=== PATIENT | male | born 1965 | race Caucasian/White ===

== ENCOUNTER 2016-10-03 09:00 | Outpatient (RCR) | payer OTHER ==
[~2016-10-03 09:00] MED LIST: AMOXICILLIN 8751 TAB PO; COUMADIN 1MG1 MG/TAB PO; CREON 120000 U-1 ECC PO; CREON 60000 U-11 ECC PO; DULCOLAX S10 MG/SUPP RC; FLEXERIL 1010 MG/TAB PO; FLOMAX 0.40.4 MG/CAP PO; FLONASE NASAL S16 GM NS; INSLANT SQ; INVANZ INJ1 G/VIAL IV; LANTUS100 U/ML SC; MELATONIN1 MG; MIRALAX PA17 GM/Dose PO; MYCAMINE100 MG IV; NOVLOG SQ; OXY IR5 MG PO; PERCOCET 325 MG1 TA2 PO; PERCOCET 325 MG1 TA3 PO; PHENERGAN 25 TA25 MG PO; PROAIR HFA0.09 MG/AC IH; ROXICODONE 55 MG/TAB PO; SENNALAX S PO; SUDAFED 12 HOU120 MG PO; TUSS PO; TYLENOL 325MG325 MG PO; ULTRAM 50MG TAB50 MG PO; ZOFRAN 4MG T4 MG/TAB PO; ZOFRAN ODT4 MG PO; ZYRTEC 10MG10 MG PO; ZYVOX 600MG600 MG PO
[2016-10-07] MEDS ORDERED: ZOFRAN ODT4 MG PO (19:09)
[2016-10-07] MEDS ORDERED: PERCOCET 325 MG1 TA3 PO (19:09)
== END 2016-10-09 | disposition still patient (30) ==
LOC: WSPT
DX: M25.512 Pain in left shoulder (principal); M25.511 Pain in right shoulder

== ENCOUNTER 2016-10-07 16:50 | Emergency (ER) | payer OTHER ==
[~2016-10-07] VITALS: Ht 180.3 cm; Wt 71.8 kg
[2016-10-07 16:55] VITALS: TEMP 98.6
[2016-10-07 17:31] LABS: BASO # 0.1 (0.0-0.2); BASO % 0.5 % (0.0-2.0); EOS # 0.1 (0.0-0.7); EOS % 0.6 % (0-4.0); GRAN # 12.6 (1.4-6.5); GRAN % 75.8 % (42.2-75.2); HEMATOCRIT 49.8 % (42.0-52.0); HEMOGLOBIN 16.8 g/dl (13.5-18.0); LYMPH # 2.2 (1.2-3.4); LYMPH % 13.4 % (20.0-51.0); MEAN CELL VOLUME 92 fl (80.0-100.0); MEAN CORPUSCULAR HEMOGLOBIN 31 pg (27.0-31.0); MEAN CORPUSCULAR HGB CONC 34 g/dl (33.0-37.0); MEAN PLATELET VOLUME 10.1 fl (7.4-10.4); MONO # 1.5 (0.1-0.6); MONO % 9.3 % (1.7-9.3); PLATELET COUNT 413 K/mm3 (130-400); RED BLOOD COUNT 5.42 M/mm3 (4.20-5.60); REDCELL DISTRIBUTION WIDTH-CV 13.2 % (11.5-14.5); WHITE BLOOD COUNT 16.6 K/mm3 (4.8-10.8)
[2016-10-07] MEDS ORDERED: PERCOCET 325 MG1 TA3 PO (19:09)
[2016-10-07] MEDS ORDERED: ZOFRAN ODT4 MG PO (19:09)
[2016-10-07 19:11] LABS: ALBUMIN 4.3 gm/dL (3.5-5.0); BILIRUBIN,TOTAL 1.4 mg/dL (0.0-1.0); C-REACTIVE PROTEIN 6.9 mg/dL (0.0-0.9); CALCIUM 10.2 mg/dL (8.4-10.2); CREATININE, serum 0.88 mg/dL (0.66-1.25); TOTAL PROTEIN 8.2 gm/dL (6.4-8.2)
[2016-10-07 19:55] VITALS: BP 138/88; PULSE 100
== END 2016-10-07 20:08 | disposition home or self-care (01) ==
LOC: COL.ER 16:50
PROVIDERS: Emergency Medicine
DX: K85.90 Acute pancreatitis without necrosis or infection, unspecified (principal); E11.9 Type 2 diabetes mellitus without complications; Z79.4 Long term (current) use of insulin
CPT/HCPCS: J1170; J2405; J7030

== ENCOUNTER → 2016-10-17 08:26 | Outpatient (RCR) | payer OTHER | LOC: WSPT 10-10 14:45 | DX: M25.511 Pain in right shoulder (principal); M25.512 Pain in left shoulder; M75.01 Adhesive capsulitis of right shoulder; M75.02 Adhesive capsulitis of left shoulder; M24.612 Ankylosis, left shoulder; M24.611 Ankylosis, right shoulder ==

== ENCOUNTER → 2016-11-24 | Outpatient (CLI) | payer OTHER | LOC: MHCPAIN 11:57 | DX: G89.29 Other chronic pain (principal); M47.817 Spondylosis without myelopathy or radiculopathy, lumbosacral region | CPT/HCPCS: G0463 ==

== ENCOUNTER → 2016-12-04 | Outpatient (CLI) | payer OTHER | LOC: MHCPAIN 13:56 | DX: M47.817 Spondylosis without myelopathy or radiculopathy, lumbosacral region (principal) ==

== ENCOUNTER → 2016-12-08 | Outpatient (CLI) | payer OTHER | LOC: MHCPAIN 13:30 | DX: G89.29 Other chronic pain (principal); M47.817 Spondylosis without myelopathy or radiculopathy, lumbosacral region | CPT/HCPCS: G0463 ==

== ENCOUNTER → 2016-12-11 | Outpatient (CLI) | payer OTHER | LOC: MHCPAIN 10:41 | DX: M47.817 Spondylosis without myelopathy or radiculopathy, lumbosacral region (principal) ==

== ENCOUNTER → 2016-12-23 | Outpatient (CLI) | payer OTHER | LOC: MHCPAIN 12:58 | DX: G89.29 Other chronic pain (principal); M47.817 Spondylosis without myelopathy or radiculopathy, lumbosacral region | CPT/HCPCS: G0463 ==

== ENCOUNTER → 2017-01-01 | Outpatient (CLI) | payer OTHER | LOC: MHCPAIN 12:37 | DX: M47.817 Spondylosis without myelopathy or radiculopathy, lumbosacral region (principal) | CPT/HCPCS: J2250; J3010 ==

== ENCOUNTER → 2017-01-15 | Outpatient (CLI) | payer OTHER | LOC: MHCPAIN 11:31 | DX: M47.817 Spondylosis without myelopathy or radiculopathy, lumbosacral region (principal) | CPT/HCPCS: J2250; J3010 ==

== ENCOUNTER → 2017-02-13 | Outpatient (CLI) | payer OTHER | LOC: MHCPAIN 10:07 | DX: G89.29 Other chronic pain (principal); M47.817 Spondylosis without myelopathy or radiculopathy, lumbosacral region | CPT/HCPCS: G0463 ==

== ENCOUNTER → 2017-03-13 | Outpatient (CLI) | payer OTHER | LOC: MHCPAIN 10:19 | DX: G89.29 Other chronic pain (principal); M47.817 Spondylosis without myelopathy or radiculopathy, lumbosacral region; M79.2 Neuralgia and neuritis, unspecified | CPT/HCPCS: G0463 ==

== ENCOUNTER 2017-04-13 09:00 | Outpatient (RCR) | payer OTHER | END 2017-04-21 16:10 | disposition home or self-care (01) | LOC: WSPT 09:00 | DX: M47.896 Other spondylosis, lumbar region (principal) ==

== ENCOUNTER → 2017-04-29 | Outpatient (CLI) | payer OTHER | LOC: MHCPAIN 12:47 | DX: G89.29 Other chronic pain (principal); M47.817 Spondylosis without myelopathy or radiculopathy, lumbosacral region; M79.1 Myalgia; M79.2 Neuralgia and neuritis, unspecified; Z87.891 Personal history of nicotine dependence | CPT/HCPCS: G0463 ==

== ENCOUNTER → 2017-05-05 | Outpatient (CLI) | payer OTHER | LOC: MHCPAIN 09:29 | DX: M79.1 Myalgia (principal) | CPT/HCPCS: J1040 ==

== ENCOUNTER → 2017-05-29 | Outpatient (CLI) | payer OTHER ==
[2017-05-29 14:36] LABS: BASO # 0.1 (0.0-0.2); BASO % 1.1 % (0.0-2.0); EOS # 0.2 (0.0-0.7); EOS % 2.9 % (0-4.0); GRAN # 4.6 (1.4-6.5); GRAN % 55.9 % (42.2-75.2); HEMATOCRIT 51.8 % (42.0-52.0); HEMOGLOBIN 16.9 g/dl (13.5-18.0); LYMPH # 2.4 (1.2-3.4); LYMPH % 29.2 % (20.0-51.0); MEAN CELL VOLUME 94 fl (80.0-100.0); MEAN CORPUSCULAR HEMOGLOBIN 31 pg (27.0-31.0); MEAN CORPUSCULAR HGB CONC 33 g/dl (33.0-37.0); MEAN PLATELET VOLUME 10.8 fl (7.4-10.4); MONO # 0.9 (0.1-0.6); MONO % 10.7 % (1.7-9.3); PLATELET COUNT 313 K/mm3 (130-400); RED BLOOD COUNT 5.51 M/mm3 (4.20-5.60); REDCELL DISTRIBUTION WIDTH-CV 13.2 % (11.5-14.5); WHITE BLOOD COUNT 8.3 K/mm3 (4.8-10.8)
[2017-05-29 14:42] LABS: ADJUSTED CALCIUM 10.1 mg/dL (8.4-10.2); BILIRUBIN,TOTAL 0.8 mg/dL (0.0-1.0); CALCIUM 10.1 mg/dL (8.4-10.2); CREATININE, serum 0.88 mg/dL (0.66-1.25); POTASSIUM 4.7 mmol/L (3.4-5.0); TOTAL PROTEIN 7.8 gm/dL (6.4-8.2)
== END ==
LOC: COL.LAB 12:18
PROVIDERS: Family Medicine
DX: E11.9 Type 2 diabetes mellitus without complications (principal)

== ENCOUNTER → 2017-05-29 | Outpatient (CLI) | payer OTHER | LOC: COL.LAB 12:15 | DX: Z01.89 Encounter for other specified special examinations (principal) ==

== ENCOUNTER → 2017-07-28 | Outpatient (CLI) | payer OTHER | LOC: MHCPAIN 12:35 | DX: G89.29 Other chronic pain (principal); M47.817 Spondylosis without myelopathy or radiculopathy, lumbosacral region; M79.1 Myalgia; M79.2 Neuralgia and neuritis, unspecified; Z87.891 Personal history of nicotine dependence | CPT/HCPCS: G0463 ==

== ENCOUNTER → 2017-07-29 | Outpatient (CLI) | payer OTHER | LOC: MHCPAIN 13:01 | DX: M79.1 Myalgia (principal) | CPT/HCPCS: J1040 ==

== ENCOUNTER → 2017-08-26 | Outpatient (CLI) | payer OTHER ==
[2017-08-26 16:31] LABS: HEMOGLOBIN 17.5 g/dl (13.5-18.0); MEAN CELL VOLUME 97 fl (80.0-100.0); MEAN CORPUSCULAR HEMOGLOBIN 31 pg (27.0-31.0); MEAN CORPUSCULAR HGB CONC 32 g/dl (33.0-37.0); PLATELET COUNT 331 K/mm3 (130-400); RED BLOOD COUNT 5.62 M/mm3 (4.20-5.60); WHITE BLOOD COUNT 10.6 K/mm3 (4.8-10.8)
[2017-08-26 16:33] LABS: HEMATOCRIT 54.4 % (42.0-52.0)
[2017-08-26 16:50] LABS: ADJUSTED CALCIUM 9.7 mg/dL (8.4-10.2); ALBUMIN 4.7 gm/dL (3.5-5.0); BILIRUBIN,TOTAL 0.9 mg/dL (0.0-1.0); CALCIUM 10.3 mg/dL (8.4-10.2); CREATININE, serum 0.87 mg/dL (0.66-1.25); POTASSIUM 4.3 mmol/L (3.4-5.0); TOTAL PROTEIN 8.2 gm/dL (6.4-8.2)
[2017-08-26 16:56] LABS: ERYTHROCYTE SEDIMENTATION RATE 1 mm/hr (0-15)
== END ==
LOC: COL.LAB 15:55
PROVIDERS: Internal Medicine Pulmonary Disease
DX: J30.9 Allergic rhinitis, unspecified (principal)

== ENCOUNTER → 2017-09-03 | Outpatient (CLI) | payer OTHER | LOC: COL.RAD 07:13 | DX: K85.90 Acute pancreatitis without necrosis or infection, unspecified (principal); E83.52 Hypercalcemia; R06.02 Shortness of breath | CPT/HCPCS: J7050; Q9967 ==

== ENCOUNTER → 2017-09-04 | Outpatient (CLI) | payer OTHER ==
[2017-09-04 13:40] LABS: BASO # 0.1 (0.0-0.2); BASO % 0.6 % (0.0-2.0); EOS # 0.2 (0.0-0.7); EOS % 1.7 % (0-4.0); GRAN # 7.5 (1.4-6.5); GRAN % 66.3 % (42.2-75.2); HEMATOCRIT 53.7 % (42.0-52.0); HEMOGLOBIN 17.3 g/dl (13.5-18.0); LYMPH # 2.4 (1.2-3.4); MEAN CELL VOLUME 97 fl (80.0-100.0); MEAN CORPUSCULAR HEMOGLOBIN 31 pg (27.0-31.0); MEAN CORPUSCULAR HGB CONC 32 g/dl (33.0-37.0); MEAN PLATELET VOLUME 10.3 fl (7.4-10.4); MONO # 1.1 (0.1-0.6); MONO % 10.1 % (1.7-9.3); PLATELET COUNT 335 K/mm3 (130-400); RED BLOOD COUNT 5.52 M/mm3 (4.20-5.60); WHITE BLOOD COUNT 11.3 K/mm3 (4.8-10.8)
== END ==
LOC: COL.LAB 13:05
PROVIDERS: Internal Medicine Pulmonary Disease
DX: E04.1 Nontoxic single thyroid nodule (principal)

== ENCOUNTER → 2017-09-24 | Outpatient (CLI) | payer BC ==
[~2017-09-24] VITALS: Ht 180.3 cm; Wt 77.3 kg
[~2017-09-24] MED LIST changes: +CLARINEX-D12 HO1 T12 PO; +CYMBALTA 30MG30 MG PO; +LEVEMIR FLEX100 U/ML SQ; +MELATONIN5 M1 SL; +NEURONTIN300 MG/CAP PO; +SENOKOT S 50 MG1 TAB PO; +THEO-24 30300 MG/CAP PO
[2017-09-24 08:55] VITALS: BP 129/86; PULSE 83
[2017-09-24 10:22] VITALS: BP 146/86; PULSE 81
== END ==
LOC: COL.RAD 08:19
DX: E04.2 Nontoxic multinodular goiter (principal); E21.3 Hyperparathyroidism, unspecified

== ENCOUNTER → 2017-09-28 | Outpatient (CLI) | payer BC | LOC: COL.RAD 11:09 | DX: E21.3 Hyperparathyroidism, unspecified (principal) | CPT/HCPCS: A9500 ==

== ENCOUNTER → 2017-09-30 | Outpatient (CLI) | payer BC | LOC: COL.LAB 15:20 | DX: E21.3 Hyperparathyroidism, unspecified (principal) ==

== ENCOUNTER → 2017-10-14 | Outpatient (CLI) | payer OTHER ==
[~2017-10-14] MED LIST changes: +PERCOCET 325 MG1 TAB PO
== END ==
LOC: BHSO 13:53
DX: F32.1 Major depressive disorder, single episode, moderate (principal)

== ENCOUNTER 2017-10-18 15:17 | Emergency (ER) | payer OTHER ==
[~2017-10-18] VITALS: Ht 180.3 cm; Wt 79.5 kg
[~2017-10-18 15:17] MED LIST changes: -PERCOCET 325 MG1 TAB PO
[2017-10-18 15:27] VITALS: TEMP 98.3
[2017-10-18 16:03] LABS: COLLECTION METHOD CLEAN CATCH
[2017-10-18 16:06] LABS: BASO # 0.1 (0.0-0.2); BASO % 0.8 % (0.0-2.0); EOS # 0.3 (0.0-0.7); EOS % 2.1 % (0-4.0); GRAN # 8.2 (1.4-6.5); GRAN % 60.5 % (42.2-75.2); HEMATOCRIT 49.6 % (42.0-52.0); LYMPH # 3.6 (1.2-3.4); LYMPH % 26.5 % (20.0-51.0); MEAN CELL VOLUME 96 fl (80.0-100.0); MEAN CORPUSCULAR HEMOGLOBIN 31 pg (27.0-31.0); MEAN CORPUSCULAR HGB CONC 32 g/dl (33.0-37.0); MEAN PLATELET VOLUME 10.2 fl (7.4-10.4); MONO # 1.3 (0.1-0.6); MONO % 9.8 % (1.7-9.3); PLATELET COUNT 342 K/mm3 (130-400); RED BLOOD COUNT 5.17 M/mm3 (4.20-5.60); REDCELL DISTRIBUTION WIDTH-CV 13.1 % (11.5-14.5)
[2017-10-18 16:10] LABS: MUCOUS Present /lpf; PH 5 (5-8); SQUAMOUS EPITHELIAL None Seen /hpf; URINE APPEARANCE Clear; URINE BACTERIA None Seen /hpf; URINE BILIRUBIN Negative (NEGATIVE); URINE BLOOD Negative (NEGATIVE); URINE COLOR Yellow; URINE GLUCOSE 1+ (NEGATIVE); URINE KETONE Trace (NEGATIVE); URINE LEUKOCYTE ESTERASE 1+ (NEGATIVE); URINE NITRATE Negative (NEGATIVE); URINE PROTEIN(semi-quant) Negative (NEGATIVE); URINE RBC 0-2 /hpf; URINE UROBILINOGEN Negative (NEGATIVE)
[2017-10-18 16:16] LABS: ALBUMIN 4.4 gm/dL (3.5-5.0); BILIRUBIN,TOTAL 0.7 mg/dL (0.0-1.0); CALCIUM 10.2 mg/dL (8.4-10.2); CREATININE, serum 0.92 mg/dL (0.66-1.25); POTASSIUM 4.1 mmol/L (3.4-5.0); TOTAL PROTEIN 7.7 gm/dL (6.4-8.2)
[2017-10-18] MEDS ORDERED: PERCOCET 325 MG1 TAB PO (17:32)
[2017-10-18] MEDS ORDERED: ZOFRAN 4MG T4 MG/TAB PO (17:32)
[2017-10-18 17:37] VITALS: BP 163/84; PULSE 84
== END 2017-10-18 17:40 | disposition home or self-care (01) ==
LOC: COL.ER 15:17
PROVIDERS: Emergency Medicine
DX: K85.90 Acute pancreatitis without necrosis or infection, unspecified (principal); K86.1 Other chronic pancreatitis; K86.81 Exocrine pancreatic insufficiency; E11.9 Type 2 diabetes mellitus without complications; Z90.49 Acquired absence of other specified parts of digestive tract; Z79.4 Long term (current) use of insulin
CPT/HCPCS: J1170; J2405; J7030

== ENCOUNTER → 2017-10-28 | Outpatient (CLI) | payer OTHER ==
[~2017-10-28] MED LIST changes: +PERCOCET 325 MG1 TAB PO
== END ==
LOC: MHCPAIN 14:17
DX: G89.29 Other chronic pain (principal); M47.817 Spondylosis without myelopathy or radiculopathy, lumbosacral region; M79.2 Neuralgia and neuritis, unspecified; K86.1 Other chronic pancreatitis
CPT/HCPCS: G0463

== ENCOUNTER → 2017-11-16 | Outpatient (CLI) | payer OTHER ==
[~2017-11-16] MED LIST changes: +CLARITIN D TAB1 TAB PO; +CYMBALTA 60MG60 MG PO; +MOVANTIK25 MG PO; +PREVACID24HROTC PO
== END ==
LOC: MHCPAIN 14:31
DX: G89.29 Other chronic pain (principal); M79.2 Neuralgia and neuritis, unspecified; M79.1 Myalgia; K86.1 Other chronic pancreatitis
CPT/HCPCS: G0463

== ENCOUNTER 2017-11-19 10:55 | Day surgery (SDC) | payer OTHER ==
[~2017-11-19] VITALS: Ht 180.3 cm; Wt 81.1 kg
[~2017-11-19 10:55] MED LIST changes: -CLARITIN D TAB1 TAB PO; -CYMBALTA 60MG60 MG PO; -MOVANTIK25 MG PO; -PREVACID24HROTC PO
[2017-11-19] MEDS ORDERED: PERCOCET 325 MG1 TA2 PO (11:58)
[2017-11-19] MEDS ORDERED: ZOFRAN 4MG T4 MG/TAB PO (12:02)
[2017-11-19] MEDS ORDERED: CYMBALTA 60MG60 MG PO (12:06)
[2017-11-19] MEDS ORDERED: CLARITIN D TAB1 TAB PO (12:08)
[2017-11-19] MEDS ORDERED: PREVACID24HROTC PO (12:15)
[2017-11-19] MEDS ORDERED: MOVANTIK25 MG PO (12:16)
[2017-11-19 12:22] VITALS: BP 116/93; PULSE 80; TEMP 98
[2017-11-19 17:13] VITALS: TEMP 98.4
[2017-11-19 20:05] VITALS: BP 139/74; PULSE 102
[2017-11-19 20:35] VITALS: BP 139/84; PULSE 111
[2017-11-19 21:35] VITALS: BP 128/86; PULSE 118
== END 2017-11-19 22:15 | disposition home or self-care (01) ==
LOC: SDCO 10:55 → SURG 18:53 → SDCO 22:15
DX: D35.1 Benign neoplasm of parathyroid gland (principal); E04.9 Nontoxic goiter, unspecified; E11.9 Type 2 diabetes mellitus without complications; K86.1 Other chronic pancreatitis; J30.9 Allergic rhinitis, unspecified; N40.1 Benign prostatic hyperplasia with lower urinary tract symptoms; R35.1 Nocturia; G89.29 Other chronic pain; M54.5 Low back pain; Z79.4 Long term (current) use of insulin; Z90.49 Acquired absence of other specified parts of digestive tract; Z88.8 Allergy status to other drugs, medicaments and biological substances; Z82.5 Family history of asthma and other chronic lower respiratory diseases
CPT/HCPCS: OP; J0330; J0690; J1100; J1815; J1885; J2270; J2405; J2704; J2765; J3010; J7030; J7040

== ENCOUNTER → 2017-11-23 | Outpatient (CLI) | payer OTHER ==
[~2017-11-23] MED LIST changes: +CLARITIN D TAB1 TAB PO; +CYMBALTA 60MG60 MG PO; +MOVANTIK25 MG PO; +PREVACID24HROTC PO
== END ==
LOC: COL.LAB 11:52
DX: E05.90 Thyrotoxicosis, unspecified without thyrotoxic crisis or storm (principal)

== ENCOUNTER → 2017-12-14 | Outpatient (CLI) | payer OTHER | LOC: MHCPAIN 11:54 | DX: G89.29 Other chronic pain (principal); M79.2 Neuralgia and neuritis, unspecified; M79.1 Myalgia; M46.96 Unspecified inflammatory spondylopathy, lumbar region | CPT/HCPCS: G0463 ==

== ENCOUNTER → 2017-12-17 | Outpatient (CLI) | payer OTHER ==
[2017-12-17 13:01] LABS: CALCIUM 8.7 mg/dL (8.4-10.2)
== END ==
LOC: COL.LAB 12:19
PROVIDERS: Student in an Organized Health Care Education/Training Program
DX: E21.0 Primary hyperparathyroidism (principal)

== ENCOUNTER → 2017-12-31 | Outpatient (CLI) | payer OTHER | LOC: MHCPAIN 12:50 | DX: M47.817 Spondylosis without myelopathy or radiculopathy, lumbosacral region (principal) ==

== ENCOUNTER → 2018-01-04 | Outpatient (CLI) | payer OTHER | LOC: MHCPAIN 13:23 | DX: G89.29 Other chronic pain (principal); M47.817 Spondylosis without myelopathy or radiculopathy, lumbosacral region; K86.1 Other chronic pancreatitis | CPT/HCPCS: G0463 ==

== ENCOUNTER → 2018-01-07 | Outpatient (CLI) | payer OTHER | LOC: MHCPAIN 11:59 | DX: M47.817 Spondylosis without myelopathy or radiculopathy, lumbosacral region (principal) | CPT/HCPCS: J2250; J3010 ==

== ENCOUNTER → 2018-01-14 | Outpatient (CLI) | payer OTHER | LOC: MHCPAIN 10:38 | DX: M47.817 Spondylosis without myelopathy or radiculopathy, lumbosacral region (principal) | CPT/HCPCS: J2250; J3010 ==

== ENCOUNTER 2018-01-30 20:24 | Emergency (ER) | payer OTHER ==
[~2018-01-30] VITALS: Ht 180.3 cm; Wt 84.1 kg
[2018-01-30 20:30] VITALS: TEMP 97
[2018-01-30 20:51] LABS: BASO # 0.1 (0.0-0.2); BASO % 0.8 % (0.0-2.0); EOS # 0.3 (0.0-0.7); EOS % 2.6 % (0-4.0); GRAN # 6.1 (1.4-6.5); HEMATOCRIT 47.5 % (42.0-52.0); HEMOGLOBIN 15.6 g/dl (13.5-18.0); LYMPH # 3.6 (1.2-3.4); LYMPH % 32.8 % (20.0-51.0); MEAN CELL VOLUME 95 fl (80.0-100.0); MEAN CORPUSCULAR HEMOGLOBIN 31 pg (27.0-31.0); MEAN CORPUSCULAR HGB CONC 33 g/dl (33.0-37.0); MEAN PLATELET VOLUME 9.9 fl (7.4-10.4); MONO # 0.9 (0.1-0.6); MONO % 8.5 % (1.7-9.3); PLATELET COUNT 368 K/mm3 (130-400); RED BLOOD COUNT 4.99 M/mm3 (4.20-5.60)
[2018-01-30 20:56] LABS: INR 1.1 (0.8-3.0); PROTHROMBIN TIME 12.5 SECONDS (9.7-12.8)
[2018-01-30 21:00] LABS: ALANINE AMINOTRANSFERASE 32 U/L (21-72); ALBUMIN 4.1 gm/dL (3.5-5.0); ALKALINE PHOSPHATASE 86 U/L (50-136); ANION GAP 12 mmol/L (7-16); AST,SGOT 28 U/L (15-37); BILIRUBIN,TOTAL 0.5 mg/dL (0.0-1.0); BLOOD UREA NITROGEN 19 mg/dL (9-20); CALCIUM 9.7 mg/dL (8.4-10.2); CARBON DIOXIDE 32 mmol/L (22-30); CHLORIDE 102 mmol/L (98-107); CREATININE, serum 1.13 mg/dL (0.66-1.25); GLUCOSE 131 mg/dL (74-106); LIPASE 1505 U/L (23-300); POTASSIUM 3.8 mmol/L (3.4-5.0); SODIUM 146 mmol/L (137-145); TOTAL PROTEIN 8.4 gm/dL (6.4-8.2)
[2018-01-30 21:12] LABS: TROPONIN-I < 0.012 ng/mL (0.000-0.034)
[2018-01-30 23:50] VITALS: BP 144/96; PULSE 75
== END 2018-01-30 23:51 | disposition home or self-care (01) ==
LOC: COL.ER 20:24
PROVIDERS: Emergency Medicine
DX: R07.89 Other chest pain (principal); Z87.19 Personal history of other diseases of the digestive system; Z87.09 Personal history of other diseases of the respiratory system; Z79.4 Long term (current) use of insulin
CPT/HCPCS: J1885; J7030

== ENCOUNTER → 2018-02-05 | Outpatient (CLI) | payer OTHER | LOC: MHCPAIN 11:10 | DX: G89.29 Other chronic pain (principal); M47.817 Spondylosis without myelopathy or radiculopathy, lumbosacral region; M79.2 Neuralgia and neuritis, unspecified | CPT/HCPCS: G0463 ==

== ENCOUNTER → 2018-02-12 | Outpatient (CLI) | payer OTHER ==
[2018-02-12 11:14] LABS: THYROID STIMULATING HORMONE 34.8 uIU/mL (0.465-4.680)
== END ==
LOC: COL.LAB 09:59
PROVIDERS: Student in an Organized Health Care Education/Training Program
DX: E03.9 Hypothyroidism, unspecified (principal)

== ENCOUNTER → 2018-03-29 | Outpatient (CLI) | payer OTHER ==
[2018-03-29 15:08] LABS: THYROID STIMULATING HORMONE 7.14 uIU/mL (0.465-4.680)
== END ==
LOC: COL.LAB 14:01
PROVIDERS: Student in an Organized Health Care Education/Training Program
DX: E03.9 Hypothyroidism, unspecified (principal)

== ENCOUNTER → 2018-04-16 | Outpatient (CLI) | payer OTHER | LOC: COL.PUL 04-12 10:00 | DX: R06.02 Shortness of breath (principal) ==

== ENCOUNTER → 2018-04-29 | Outpatient (CLI) | payer OTHER | LOC: COL.LAB 13:34 | DX: E03.9 Hypothyroidism, unspecified (principal) ==

== ENCOUNTER → 2018-04-30 | Outpatient (CLI) | payer OTHER | LOC: MHCPAIN 10:22 | DX: G89.29 Other chronic pain (principal); M47.817 Spondylosis without myelopathy or radiculopathy, lumbosacral region | CPT/HCPCS: G0463 ==

== ENCOUNTER → 2018-06-03 | Outpatient (CLI) | payer OTHER ==
[2018-06-03 12:38] LABS: CHOLESTEROL RISK RATIO 5.4
[2018-06-04 09:19] LABS: URINE MICROALBUMIN 3.6 mg/dL (0.0-1.7)
== END ==
LOC: COL.LAB 11:44
PROVIDERS: Family Medicine
DX: Z13.220 Encounter for screening for lipoid disorders (principal); E11.9 Type 2 diabetes mellitus without complications

== ENCOUNTER → 2018-07-21 | Outpatient (CLI) | payer OTHER | LOC: MHCPAIN 11:13 | DX: G89.29 Other chronic pain (principal); M47.817 Spondylosis without myelopathy or radiculopathy, lumbosacral region; M53.3 Sacrococcygeal disorders, not elsewhere classified | CPT/HCPCS: G0463 ==

== ENCOUNTER 2018-09-04 18:56 | Inpatient (IN) | payer OTHER ==
[~2018-09-04] VITALS: Ht 180.3 cm; Wt 86.5 kg
[2018-09-04 19:40] LABS: HEMATOCRIT 50.2 % (42.0-52.0); HEMOGLOBIN 16.4 g/dl (13.5-18.0); MEAN CELL VOLUME 93 fl (80.0-100.0); MEAN CORPUSCULAR HEMOGLOBIN 30 pg (27.0-31.0); MEAN CORPUSCULAR HGB CONC 33 g/dl (33.0-37.0); MEAN PLATELET VOLUME 9.7 fl (7.4-10.4); PLATELET COUNT 343 K/mm3 (130-400); RED BLOOD COUNT 5.39 M/mm3 (4.20-5.60); REDCELL DISTRIBUTION WIDTH-CV 13.6 % (11.5-14.5)
[2018-09-04 20:10] LABS: BILIRUBIN,TOTAL 0.8 mg/dL (0.0-1.0); CALCIUM 9.2 mg/dL (8.4-10.2); CREATININE, serum 0.9 mg/dL (0.66-1.25); POTASSIUM 3.8 mmol/L (3.4-5.0); TOTAL PROTEIN 7.6 gm/dL (6.4-8.2)
[2018-09-04] MEDS ORDERED: LIORESAL 1010 MG/TAB PO (20:15)
[2018-09-04] MEDS ORDERED: SINGULAIR 110 MG/TAB PO (20:15)
[2018-09-04] MEDS ORDERED: SYNTHROID 0.0.025 MG (20:16)
[2018-09-04] MEDS ORDERED: TRELEGY ELLIPT1 EACH IH (20:16)
[2018-09-04] MEDS ORDERED: SYNTHROID 0.10.15 MG PO (20:16)
[2018-09-04] MEDS ORDERED: COMBIRESP IH (20:17)
[2018-09-04 21:38] LABS: BAND 6 % (0-10); BASOPHIL 1 % (0-2); LYMPHOCYTE 5 % (20.0-51.0); NEUTROPHILS 80 % (42.0-75.2); PLATELET ESTIMATE NORMAL (NORMAL)
[2018-09-04 23:32] VITALS: BP 149/91; PULSE 97; TEMP 98.9
[2018-09-05] MEDS ORDERED: CREON 120000 U-1 ECC PO (00:11)
[2018-09-05 00:14] VITALS: BP 146/91; PULSE 97; TEMP 98
[2018-09-05 04:13] VITALS: BP 134/76; PULSE 86; TEMP 98
[2018-09-05 08:21] VITALS: BP 125/78; PULSE 72; TEMP 98.1
[2018-09-05 12:08] VITALS: BP 140/69; PULSE 81; TEMP 98.8
[2018-09-05 15:51] VITALS: BP 139/72; PULSE 86; TEMP 98.2
[2018-09-05 19:57] VITALS: BP 145/80; PULSE 79; TEMP 97.6
[2018-09-06] VITALS (7 sets, daily range): BP systolic 126–146; BP diastolic 60–87; PULSE 65–100; TEMP 97.7–100.1
[2018-09-06 09:21] LABS: HEMATOCRIT 45.2 % (42.0-52.0); MEAN CELL VOLUME 93 fl (80.0-100.0); MEAN CORPUSCULAR HEMOGLOBIN 31 pg (27.0-31.0); MEAN CORPUSCULAR HGB CONC 33 g/dl (33.0-37.0); MEAN PLATELET VOLUME 10.1 fl (7.4-10.4); PLATELET COUNT 341 K/mm3 (130-400); RED BLOOD COUNT 4.87 M/mm3 (4.20-5.60); REDCELL DISTRIBUTION WIDTH-CV 13.6 % (11.5-14.5)
[2018-09-06 09:36] LABS: CALCIUM 7.9 mg/dL (8.4-10.2); CREATININE, serum 0.76 mg/dL (0.66-1.25); POTASSIUM 3.7 mmol/L (3.4-5.0)
[2018-09-06 10:45] LABS: BAND 4 % (0-10); LYMPHOCYTE 10 % (20.0-51.0); NEUTROPHILS 74 % (42.0-75.2); PLATELET ESTIMATE NORMAL (NORMAL)
[2018-09-07 04:43] VITALS: BP 136/75; PULSE 74; TEMP 98.3
[2018-09-07 07:36] VITALS: BP 136/79; PULSE 77; TEMP 98.3
[2018-09-07 09:16] LABS: BASO % 0.3 % (0.0-2.0); EOS # 0.2 (0.0-0.7); EOS % 1.4 % (0-4.0); GRAN # 8.1 (1.4-6.5); GRAN % 69.2 % (42.2-75.2); HEMATOCRIT 45.8 % (42.0-52.0); HEMOGLOBIN 14.7 g/dl (13.5-18.0); LYMPH % 17.3 % (20.0-51.0); MEAN CELL VOLUME 95 fl (80.0-100.0); MEAN CORPUSCULAR HEMOGLOBIN 31 pg (27.0-31.0); MEAN CORPUSCULAR HGB CONC 32 g/dl (33.0-37.0); MEAN PLATELET VOLUME 9.7 fl (7.4-10.4); MONO # 1.3 (0.1-0.6); MONO % 11.5 % (1.7-9.3); PLATELET COUNT 339 K/mm3 (130-400); REDCELL DISTRIBUTION WIDTH-CV 13.6 % (11.5-14.5)
[2018-09-07 09:24] LABS: CALCIUM 8.7 mg/dL (8.4-10.2); CREATININE, serum 0.91 mg/dL (0.66-1.25); POTASSIUM 3.7 mmol/L (3.4-5.0)
[2018-09-07 11:25] VITALS: BP 138/89; PULSE 75; TEMP 98
[2018-09-07 16:25] VITALS: BP 144/38; PULSE 86; TEMP 97.6
[2018-09-07 20:55] VITALS: BP 151/82; PULSE 94; TEMP 97.8
[2018-09-07 23:46] VITALS: BP 136/81; PULSE 73; TEMP 98.1
[2018-09-08 05:29] VITALS: BP 125/72; PULSE 68; TEMP 97.9
[2018-09-08 06:11] LABS: BASO # 0.1 (0.0-0.2); BASO % 0.5 % (0.0-2.0); EOS # 0.2 (0.0-0.7); EOS % 2.4 % (0-4.0); GRAN # 6.1 (1.4-6.5); GRAN % 67.1 % (42.2-75.2); HEMATOCRIT 42.8 % (42.0-52.0); HEMOGLOBIN 13.8 g/dl (13.5-18.0); LYMPH # 1.6 (1.2-3.4); LYMPH % 17.6 % (20.0-51.0); MEAN CELL VOLUME 94 fl (80.0-100.0); MEAN CORPUSCULAR HEMOGLOBIN 30 pg (27.0-31.0); MEAN CORPUSCULAR HGB CONC 32 g/dl (33.0-37.0); MONO # 1.1 (0.1-0.6); MONO % 12.1 % (1.7-9.3); PLATELET COUNT 358 K/mm3 (130-400); RED BLOOD COUNT 4.57 M/mm3 (4.20-5.60); REDCELL DISTRIBUTION WIDTH-CV 13.3 % (11.5-14.5)
[2018-09-08 06:24] LABS: CALCIUM 8.1 mg/dL (8.4-10.2); CREATININE, serum 0.82 mg/dL (0.66-1.25); POTASSIUM 3.3 mmol/L (3.4-5.0)
[2018-09-08 08:07] VITALS: BP 141/77; PULSE 70; TEMP 97.1
[2018-09-08] MEDS ORDERED: PERCOCET 325 MG1 TA3 PO (10:33)
== END 2018-09-08 11:25 | disposition home or self-care (01) | DRG 439 ==
LOC: COL.ER 18:56 → MEDICAL 22:43
PROVIDERS: Emergency Medicine; Internal Medicine
DX: K86.3 Pseudocyst of pancreas (principal); F11.20 Opioid dependence, uncomplicated; J44.9 Chronic obstructive pulmonary disease, unspecified; Z87.891 Personal history of nicotine dependence; J45.909 Unspecified asthma, uncomplicated; E11.9 Type 2 diabetes mellitus without complications; Z79.4 Long term (current) use of insulin; K86.1 Other chronic pancreatitis; G89.29 Other chronic pain
CPT/HCPCS: 99232-AI; 99238; A4216; G0378; J1170; J1650; J1815; J2185; J2405; J7030; J7512; Q9967

== ENCOUNTER 2018-10-05 20:19 | Emergency (ER) | payer OTHER ==
[~2018-10-05] VITALS: Ht 180.3 cm; Wt 70.5 kg
[~2018-10-05 20:19] MED LIST changes: +COMBIRESP IH; +LIORESAL 1010 MG/TAB PO; +SINGULAIR 110 MG/TAB PO; +SYNTHROID 0.0.025 MG; +SYNTHROID 0.10.15 MG PO; +TRELEGY ELLIPT1 EACH IH
[2018-10-05 20:24] VITALS: TEMP 97.9
[2018-10-05 20:50] LABS: BASO # 0.1 (0.0-0.2); BASO % 0.7 % (0.0-2.0); EOS # 0.2 (0.0-0.7); EOS % 2.1 % (0-4.0); GRAN % 64.6 % (42.2-75.2); HEMATOCRIT 47.7 % (42.0-52.0); HEMOGLOBIN 15.4 g/dl (13.5-18.0); LYMPH # 2.4 (1.2-3.4); LYMPH % 22.1 % (20.0-51.0); MEAN CELL VOLUME 94 fl (80.0-100.0); MEAN CORPUSCULAR HEMOGLOBIN 30 pg (27.0-31.0); MEAN CORPUSCULAR HGB CONC 32 g/dl (33.0-37.0); MONO # 1.1 (0.1-0.6); MONO % 10.2 % (1.7-9.3); PLATELET COUNT 327 K/mm3 (130-400); RED BLOOD COUNT 5.08 M/mm3 (4.20-5.60)
[2018-10-05 21:04] LABS: BILIRUBIN,TOTAL 0.5 mg/dL (0.0-1.0); CALCIUM 9.3 mg/dL (8.4-10.2); CREATININE, serum 0.87 mg/dL (0.66-1.25); POTASSIUM 3.9 mmol/L (3.4-5.0); TOTAL PROTEIN 7.8 gm/dL (6.4-8.2)
[2018-10-05] MEDS ORDERED: PHENERGAN 25 TA25 MG PO (21:56)
[2018-10-05 22:07] VITALS: BP 120/88; PULSE 87
== END 2018-10-05 22:08 | disposition home or self-care (01) ==
LOC: COL.ER 20:19
PROVIDERS: Emergency Medicine
DX: R10.12 Left upper quadrant pain (principal); J44.9 Chronic obstructive pulmonary disease, unspecified; Z87.891 Personal history of nicotine dependence; Z79.51 Long term (current) use of inhaled steroids; Z79.4 Long term (current) use of insulin
CPT/HCPCS: J1630; J2270; J2550; J7030

== ENCOUNTER → 2018-10-11 | Outpatient (CLI) | payer OTHER | LOC: MHCPAIN 11:13 | DX: G89.29 Other chronic pain (principal); M47.817 Spondylosis without myelopathy or radiculopathy, lumbosacral region; M53.3 Sacrococcygeal disorders, not elsewhere classified | CPT/HCPCS: G0463 ==

== ENCOUNTER 2018-11-20 20:10 | Emergency (ER) | payer OTHER ==
[~2018-11-20] VITALS: Ht 180.3 cm; Wt 82.7 kg
[2018-11-20 20:26] VITALS: TEMP 97.5
[2018-11-20 22:15] LABS: BASO # 0.1 (0.0-0.2); BASO % 0.9 % (0.0-2.0); EOS # 0.2 (0.0-0.7); EOS % 1.6 % (0-4.0); GRAN # 6.6 (1.4-6.5); GRAN % 57.5 % (42.2-75.2); HEMATOCRIT 47.2 % (42.0-52.0); HEMOGLOBIN 15.6 g/dl (13.5-18.0); LYMPH # 3.5 (1.2-3.4); LYMPH % 30.4 % (20.0-51.0); MEAN CELL VOLUME 94 fl (80.0-100.0); MEAN CORPUSCULAR HEMOGLOBIN 31 pg (27.0-31.0); MEAN CORPUSCULAR HGB CONC 33 g/dl (33.0-37.0); MEAN PLATELET VOLUME 9.6 fl (7.4-10.4); MONO # 1.1 (0.1-0.6); MONO % 9.3 % (1.7-9.3); PLATELET COUNT 316 K/mm3 (130-400); RED BLOOD COUNT 5.04 M/mm3 (4.20-5.60); REDCELL DISTRIBUTION WIDTH-CV 13.6 % (11.5-14.5)
[2018-11-20 22:27] LABS: ALBUMIN 3.8 gm/dL (3.5-5.0); BILIRUBIN,TOTAL 0.2 mg/dL (0.0-1.0); CALCIUM 8.7 mg/dL (8.4-10.2); CREATININE, serum 0.93 mg/dL (0.66-1.25); POTASSIUM 3.6 mmol/L (3.4-5.0); TOTAL PROTEIN 7.2 gm/dL (6.4-8.2)
[2018-11-21 01:56] VITALS: BP 172/109; PULSE 80
== END 2018-11-21 03:24 | disposition short-term general hospital (02) ==
LOC: COL.ER 20:10
PROVIDERS: Emergency Medicine
DX: K85.90 Acute pancreatitis without necrosis or infection, unspecified (principal); K86.1 Other chronic pancreatitis; K86.3 Pseudocyst of pancreas; K86.81 Exocrine pancreatic insufficiency; E11.9 Type 2 diabetes mellitus without complications; Z79.4 Long term (current) use of insulin; Z87.19 Personal history of other diseases of the digestive system; Z90.49 Acquired absence of other specified parts of digestive tract
CPT/HCPCS: J1170; J2405; J2550; J7030; Q9967

== ENCOUNTER → 2018-12-06 | Outpatient (CLI) | payer OTHER | LOC: COL.LAB 13:37 | DX: E21.0 Primary hyperparathyroidism (principal) ==

== ENCOUNTER → 2018-12-06 | Outpatient (CLI) | payer OTHER | LOC: COL.RAD 13:34 | DX: R10.9 Unspecified abdominal pain (principal); Z90.49 Acquired absence of other specified parts of digestive tract; Z96.89 Presence of other specified functional implants ==

== ENCOUNTER → 2019-01-04 | Outpatient (CLI) | payer OTHER | LOC: MHCPAIN 12:30 | DX: G89.29 Other chronic pain (principal); M47.817 Spondylosis without myelopathy or radiculopathy, lumbosacral region; M53.3 Sacrococcygeal disorders, not elsewhere classified | CPT/HCPCS: G0463 ==

== ENCOUNTER → 2019-01-06 | Outpatient (CLI) | payer OTHER | LOC: MHCPAIN 14:02 | DX: M47.817 Spondylosis without myelopathy or radiculopathy, lumbosacral region (principal); M54.16 Radiculopathy, lumbar region ==

== ENCOUNTER → 2019-01-13 | Outpatient (CLI) | payer OTHER | LOC: MHCPAIN 13:47 | DX: M47.817 Spondylosis without myelopathy or radiculopathy, lumbosacral region (principal); G89.29 Other chronic pain; M53.3 Sacrococcygeal disorders, not elsewhere classified | CPT/HCPCS: G0463; J2250; J3010 ==

== ENCOUNTER 2019-01-18 21:44 | Emergency (ER) | payer OTHER ==
[~2019-01-18] VITALS: Ht 180.3 cm; Wt 82.7 kg
[2019-01-18 21:50] VITALS: BP 159/98; TEMP 97.9
[2019-01-18 23:39] LABS: BASO # 0.1 (0.0-0.2); EOS # 0.2 (0.0-0.7); EOS % 2.2 % (0-4.0); GRAN # 5.2 (1.4-6.5); HEMATOCRIT 51.3 % (42.0-52.0); HEMOGLOBIN 16.3 g/dl (13.5-18.0); LYMPH # 3.4 (1.2-3.4); LYMPH % 34.3 % (20.0-51.0); MEAN CELL VOLUME 96 fl (80.0-100.0); MEAN CORPUSCULAR HEMOGLOBIN 30 pg (27.0-31.0); MEAN CORPUSCULAR HGB CONC 32 g/dl (33.0-37.0); MEAN PLATELET VOLUME 9.8 fl (7.4-10.4); MONO # 0.9 (0.1-0.6); MONO % 9.3 % (1.7-9.3); PLATELET COUNT 358 K/mm3 (130-400); RED BLOOD COUNT 5.36 M/mm3 (4.20-5.60); REDCELL DISTRIBUTION WIDTH-CV 13.3 % (11.5-14.5)
[2019-01-18 23:51] LABS: ALBUMIN 4.1 gm/dL (3.5-5.0); BILIRUBIN,TOTAL 0.4 mg/dL (0.0-1.0); CALCIUM 9.4 mg/dL (8.4-10.2); CREATININE, serum 0.96 (0.66-1.25); TOTAL PROTEIN 7.8 gm/dL (6.4-8.2)
[2019-01-19 02:07] VITALS: PULSE 83
== END 2019-01-19 02:07 | disposition home or self-care (01) ==
LOC: COL.ER 21:44
PROVIDERS: Emergency Medicine
DX: R10.12 Left upper quadrant pain (principal); E11.9 Type 2 diabetes mellitus without complications; E03.9 Hypothyroidism, unspecified; Z79.4 Long term (current) use of insulin; Z87.19 Personal history of other diseases of the digestive system; Z90.49 Acquired absence of other specified parts of digestive tract; Z98.890 Other specified postprocedural states
CPT/HCPCS: J1170; J2405; J7030; Q9967

== ENCOUNTER → 2019-01-20 | Outpatient (CLI) | payer OTHER | LOC: MHCPAIN 13:51 | DX: M47.817 Spondylosis without myelopathy or radiculopathy, lumbosacral region (principal); M54.16 Radiculopathy, lumbar region | CPT/HCPCS: J2250; J3010 ==

== ENCOUNTER 2019-01-30 22:11 | Emergency (ER) | payer OTHER ==
[~2019-01-30] VITALS: Ht 180.3 cm; Wt 82.7 kg
[2019-01-30 22:35] VITALS: BP 147/87; TEMP 97.8
[2019-01-30 23:17] LABS: BASO # 0.1 (0.0-0.2); BASO % 0.6 % (0.0-2.0); EOS # 0.1 (0.0-0.7); EOS % 0.6 % (0-4.0); GRAN # 11.3 (1.4-6.5); GRAN % 72.6 % (42.2-75.2); HEMATOCRIT 45.3 % (42.0-52.0); HEMOGLOBIN 14.9 g/dl (13.5-18.0); LYMPH # 2.5 (1.2-3.4); LYMPH % 16.4 % (20.0-51.0); MEAN CELL VOLUME 95 fl (80.0-100.0); MEAN CORPUSCULAR HEMOGLOBIN 31 pg (27.0-31.0); MEAN CORPUSCULAR HGB CONC 33 g/dl (33.0-37.0); MEAN PLATELET VOLUME 10.8 fl (7.4-10.4); MONO # 1.5 (0.1-0.6); MONO % 9.5 % (1.7-9.3); PLATELET COUNT 310 K/mm3 (130-400); RED BLOOD COUNT 4.79 M/mm3 (4.20-5.60); REDCELL DISTRIBUTION WIDTH-CV 13.5 % (11.5-14.5)
[2019-01-30 23:49] LABS: ALBUMIN 3.6 gm/dL (3.5-5.0); BILIRUBIN,TOTAL 0.6 mg/dL (0.0-1.0); CALCIUM 8.6 mg/dL (8.4-10.2); CREATININE, serum 0.99 (0.66-1.25); POTASSIUM 3.7 mmol/L (3.4-5.0); TOTAL PROTEIN 6.9 gm/dL (6.4-8.2)
[2019-01-31 00:35] LABS: COLLECTION METHOD CLEAN CATCH
[2019-01-31 00:42] LABS: PH 7 (5-8); SQUAMOUS EPITHELIAL 0-2 /hpf; URINE APPEARANCE Clear; URINE BACTERIA None Seen /hpf; URINE BILIRUBIN Negative (NEGATIVE); URINE BLOOD Negative (NEGATIVE); URINE COLOR Straw; URINE GLUCOSE Negative (NEGATIVE); URINE KETONE Negative (NEGATIVE); URINE LEUKOCYTE ESTERASE Negative (NEGATIVE); URINE NITRATE Negative (NEGATIVE); URINE PROTEIN(semi-quant) Negative (NEGATIVE); URINE RBC 0-2 /hpf; URINE UROBILINOGEN Negative (NEGATIVE)
[2019-01-31 01:56] VITALS: PULSE 84
== END 2019-01-31 01:50 | disposition home or self-care (01) ==
LOC: COL.ER 22:11
PROVIDERS: Emergency Medicine
DX: K85.90 Acute pancreatitis without necrosis or infection, unspecified (principal); K86.3 Pseudocyst of pancreas; J44.9 Chronic obstructive pulmonary disease, unspecified; E11.9 Type 2 diabetes mellitus without complications; Z90.49 Acquired absence of other specified parts of digestive tract; Z90.89 Acquired absence of other organs; Z87.891 Personal history of nicotine dependence
CPT/HCPCS: J1170; J2550; J7030; Q9967

== ENCOUNTER → 2019-04-05 | Outpatient (CLI) | payer MEDICARE, OTHER | LOC: MHCPAIN 12:38 | DX: G89.29 Other chronic pain (principal); M47.817 Spondylosis without myelopathy or radiculopathy, lumbosacral region; M53.3 Sacrococcygeal disorders, not elsewhere classified | CPT/HCPCS: G0463 ==

== ENCOUNTER → 2019-06-29 | Outpatient (CLI) | payer MEDICARE, OTHER | LOC: COL.RAD 13:52 | DX: R22.1 Localized swelling, mass and lump, neck (principal); Z90.89 Acquired absence of other organs | CPT/HCPCS: Q9967 ==

== ENCOUNTER → 2019-07-05 | Outpatient (CLI) | payer MEDICARE, OTHER | LOC: MHCPAIN 12:36 | DX: G89.29 Other chronic pain (principal); M47.817 Spondylosis without myelopathy or radiculopathy, lumbosacral region; M53.3 Sacrococcygeal disorders, not elsewhere classified | CPT/HCPCS: G0463 ==

== ENCOUNTER 2019-07-09 01:19 | Emergency (ER) | payer MEDICARE, OTHER ==
[~2019-07-09] VITALS: Ht 180.3 cm; Wt 84.1 kg
[2019-07-09 01:31] VITALS: TEMP 98.1
[2019-07-09 02:38] LABS: BASO # 0.1 (0.0-0.2); BASO % 0.9 % (0.0-2.0); EOS # 0.3 (0.0-0.7); EOS % 2.1 % (0-4.0); GRAN # 7.7 (1.4-6.5); GRAN % 60.6 % (42.2-75.2); HEMOGLOBIN 17.2 g/dl (13.5-18.0); LYMPH # 3.4 (1.2-3.4); LYMPH % 27.2 % (20.0-51.0); MEAN CELL VOLUME 94 fl (80.0-100.0); MEAN CORPUSCULAR HEMOGLOBIN 31 pg (27.0-31.0); MEAN CORPUSCULAR HGB CONC 33 g/dl (33.0-37.0); MONO # 1.1 (0.1-0.6); MONO % 8.9 % (1.7-9.3); PLATELET COUNT 336 K/mm3 (130-400)
[2019-07-09 02:41] LABS: HEMATOCRIT 52.7 % (42.0-52.0)
[2019-07-09 02:46] LABS: COLLECTION METHOD CLEAN CATCH
[2019-07-09 02:48] LABS: ALBUMIN 4.3 gm/dL (3.5-5.0); BILIRUBIN,TOTAL 0.4 mg/dL (0.0-1.0); CALCIUM 8.9 mg/dL (8.4-10.2); CREATININE, serum 0.97 (0.66-1.25); TOTAL PROTEIN 8.1 gm/dL (6.4-8.2)
[2019-07-09 02:57] LABS: MUCOUS Present /lpf; PH 6 (5-8); SQUAMOUS EPITHELIAL None Seen /hpf; URINE APPEARANCE Clear; URINE BACTERIA None Seen /hpf; URINE BILIRUBIN Negative (NEGATIVE); URINE BLOOD Negative (NEGATIVE); URINE COLOR Yellow; URINE GLUCOSE Negative (NEGATIVE); URINE KETONE Negative (NEGATIVE); URINE LEUKOCYTE ESTERASE Negative (NEGATIVE); URINE NITRATE Negative (NEGATIVE); URINE PROTEIN(semi-quant) 1+ (NEGATIVE); URINE RBC 0-2 /hpf; URINE UROBILINOGEN Negative (NEGATIVE)
[2019-07-09 04:03] VITALS: BP 154/90; PULSE 74
== END 2019-07-09 04:03 | disposition home or self-care (01) ==
LOC: COL.ER 01:19
PROVIDERS: Emergency Medicine
DX: K86.1 Other chronic pancreatitis (principal); Z79.51 Long term (current) use of inhaled steroids; Z79.4 Long term (current) use of insulin
CPT/HCPCS: J1170; J2405; J7050

== ENCOUNTER → 2019-08-04 | Outpatient (CLI) | payer MEDICARE, OTHER ==
[2019-08-04 12:51] LABS: BASO # 0.1 (0.0-0.2); EOS # 0.2 (0.0-0.7); EOS % 1.7 % (0-4.0); GRAN # 6.2 (1.4-6.5); GRAN % 65.5 % (42.2-75.2); HEMATOCRIT 51.2 % (42.0-52.0); HEMOGLOBIN 16.6 g/dl (13.5-18.0); LYMPH % 20.6 % (20.0-51.0); MEAN CELL VOLUME 94 fl (80.0-100.0); MEAN CORPUSCULAR HEMOGLOBIN 31 pg (27.0-31.0); MEAN CORPUSCULAR HGB CONC 32 g/dl (33.0-37.0); MEAN PLATELET VOLUME 10.6 fl (7.4-10.4); MONO % 10.8 % (1.7-9.3); PLATELET COUNT 344 K/mm3 (130-400); RED BLOOD COUNT 5.44 M/mm3 (4.20-5.60); REDCELL DISTRIBUTION WIDTH-CV 13.2 % (11.5-14.5)
== END ==
LOC: COL.LAB 12:07
PROVIDERS: Internal Medicine Pulmonary Disease
DX: R06.02 Shortness of breath (principal)

== ENCOUNTER 2019-09-23 20:06 | Emergency (ER) | payer MEDICARE, OTHER ==
[~2019-09-23] VITALS: Ht 180.3 cm; Wt 86.4 kg
[2019-09-23 20:11] VITALS: TEMP 99
[2019-09-23 20:40] LABS: COLLECTION METHOD CLEAN CATCH
[2019-09-23 20:51] LABS: MUCOUS Present /lpf; PH 6 (5-8); SQUAMOUS EPITHELIAL None Seen /hpf; URINE APPEARANCE Clear; URINE BACTERIA None Seen /hpf; URINE BILIRUBIN Negative (NEGATIVE); URINE BLOOD Negative (NEGATIVE); URINE COLOR Yellow; URINE GLUCOSE Negative (NEGATIVE); URINE KETONE Negative (NEGATIVE); URINE LEUKOCYTE ESTERASE Negative (NEGATIVE); URINE NITRATE Negative (NEGATIVE); URINE PROTEIN(semi-quant) Negative (NEGATIVE); URINE RBC 0-2 /hpf; URINE UROBILINOGEN Negative (NEGATIVE)
[2019-09-23 20:52] LABS: BASO # 0.1 (0.0-0.2); EOS # 0.2 (0.0-0.7); EOS % 2.1 % (0-4.0); GRAN # 6.5 (1.4-6.5); HEMOGLOBIN 16.3 g/dl (13.5-18.0); LYMPH # 3.3 (1.2-3.4); MEAN CELL VOLUME 95 fl (80.0-100.0); MEAN CORPUSCULAR HEMOGLOBIN 31 pg (27.0-31.0); MEAN CORPUSCULAR HGB CONC 33 g/dl (33.0-37.0); MEAN PLATELET VOLUME 10.2 fl (7.4-10.4); MONO # 1.2 (0.1-0.6); MONO % 10.5 % (1.7-9.3); PLATELET COUNT 342 K/mm3 (130-400); RED BLOOD COUNT 5.29 M/mm3 (4.20-5.60); REDCELL DISTRIBUTION WIDTH-CV 13.2 % (11.5-14.5)
[2019-09-23 21:02] LABS: ALBUMIN 4.2 gm/dL (3.5-5.0); BILIRUBIN,TOTAL 0.4 mg/dL (0.0-1.0); C-REACTIVE PROTEIN 0.8 mg/dL (0.0-0.9); CALCIUM 8.7 mg/dL (8.4-10.2); CREATININE, serum 0.88 (0.66-1.25); POTASSIUM 3.7 mmol/L (3.4-5.0); TOTAL PROTEIN 7.8 gm/dL (6.4-8.2)
[2019-09-23 22:35] VITALS: BP 148/99; PULSE 80
== END 2019-09-23 22:43 | disposition home or self-care (01) ==
LOC: COL.ER 20:06
PROVIDERS: Family Medicine
DX: K86.1 Other chronic pancreatitis (principal); E11.9 Type 2 diabetes mellitus without complications; K59.00 Constipation, unspecified; J45.909 Unspecified asthma, uncomplicated; Z79.4 Long term (current) use of insulin; Z79.51 Long term (current) use of inhaled steroids
CPT/HCPCS: J1170; J2270; J2405; J7030; Q9967

== ENCOUNTER → 2019-09-27 | Outpatient (CLI) | payer MEDICARE, OTHER | LOC: MHCPAIN 12:51 | DX: M47.817 Spondylosis without myelopathy or radiculopathy, lumbosacral region (principal); M53.3 Sacrococcygeal disorders, not elsewhere classified | CPT/HCPCS: G0463 ==

== ENCOUNTER → 2019-10-13 | Outpatient (CLI) | payer MEDICARE, OTHER | LOC: MHCPAIN 09:35 | DX: M54.5 Low back pain (principal) | CPT/HCPCS: J2250; J3010 ==

== ENCOUNTER → 2019-10-20 | Outpatient (CLI) | payer MEDICARE, OTHER | LOC: MHCPAIN 10:47 | DX: M54.5 Low back pain (principal) | CPT/HCPCS: J1100; J2250; J3010 ==

== ENCOUNTER 2019-12-22 14:53 | Emergency (ER) | payer MEDICARE, OTHER ==
[~2019-12-22] VITALS: Ht 180.3 cm; Wt 87.3 kg
[2019-12-22 16:11] LABS: BASO # 0.1 (0.0-0.2); BASO % 0.6 % (0.0-2.0); EOS # 0.2 (0.0-0.7); EOS % 1.9 % (0-4.0); GRAN # 8.9 (1.4-6.5); GRAN % 70.4 % (42.2-75.2); HEMOGLOBIN 17.4 g/dl (13.5-18.0); LYMPH # 2.3 (1.2-3.4); LYMPH % 18.1 % (20.0-51.0); MEAN CELL VOLUME 95 fl (80.0-100.0); MEAN CORPUSCULAR HEMOGLOBIN 31 pg (27.0-31.0); MEAN CORPUSCULAR HGB CONC 33 g/dl (33.0-37.0); MEAN PLATELET VOLUME 9.9 fl (7.4-10.4); MONO # 1.1 (0.1-0.6); MONO % 8.7 % (1.7-9.3); PLATELET COUNT 363 K/mm3 (130-400); RED BLOOD COUNT 5.62 M/mm3 (4.20-5.60); REDCELL DISTRIBUTION WIDTH-CV 13.2 % (11.5-14.5)
[2019-12-22 16:15] LABS: HEMATOCRIT 53.5 % (42.0-52.0)
[2019-12-22 16:25] LABS: ALBUMIN 4.5 gm/dL (3.5-5.0); BILIRUBIN,TOTAL 0.6 mg/dL (0.0-1.0); CALCIUM 9.8 mg/dL (8.4-10.2); CREATININE, serum 0.86 (0.66-1.25); POTASSIUM 4.4 mmol/L (3.4-5.0); TOTAL PROTEIN 8.4 gm/dL (6.4-8.2)
[2019-12-22 17:41] VITALS: BP 140/70; PULSE 74; TEMP 97.1
[2019-12-23] MEDS ORDERED: PERCOCET 325 MG1 TA3 PO (00:09)
== END 2019-12-22 17:50 | disposition home or self-care (01) ==
LOC: COL.ER 14:53
PROVIDERS: Emergency Medicine
DX: K86.1 Other chronic pancreatitis (principal); I10 Essential (primary) hypertension; E11.9 Type 2 diabetes mellitus without complications; Z90.89 Acquired absence of other organs; Z79.51 Long term (current) use of inhaled steroids; Z79.4 Long term (current) use of insulin
CPT/HCPCS: J1170; J2405; J2550; J7030

== ENCOUNTER 2019-12-22 21:44 | Inpatient (IN) | payer MEDICARE, OTHER ==
[~2019-12-22] VITALS: Ht 177.8 cm; Wt 84.0 kg
--- NOTE | 2019-12-22 23:40 | NUR ---
Arrives per cart, is alert and oriented x4. Has SL to right AC without redness or swelling.
[2019-12-22 23:59] LABS: COLLECTION METHOD CLEAN CATCH
[2019-12-23] VITALS (14 sets, daily range): BP systolic 141–177; BP diastolic 76–98; PULSE 63–91; TEMP 97.5–98.8
[2019-12-23 00:06] LABS: MUCOUS Present /lpf; PH 7 (5-8); SQUAMOUS EPITHELIAL None Seen /hpf; URINE APPEARANCE Clear; URINE BACTERIA None Seen /hpf; URINE BILIRUBIN Negative (NEGATIVE); URINE BLOOD Negative (NEGATIVE); URINE COLOR Yellow; URINE GLUCOSE Negative (NEGATIVE); URINE KETONE Negative (NEGATIVE); URINE LEUKOCYTE ESTERASE Negative (NEGATIVE); URINE NITRATE Negative (NEGATIVE); URINE PROTEIN(semi-quant) Negative (NEGATIVE); URINE UROBILINOGEN Negative (NEGATIVE)
[2019-12-23] MEDS ORDERED: PERCOCET 325 MG1 TA3 PO (00:09)
--- NOTE | 2019-12-23 00:15 | NUR ---
While doing patients admission questions, pt asks for doctor to be called for more pain meds, he doesn't think he can wait until [address] Quintana notified, new orders received for COIL FINISHER Dilaudid, Synthroid, accuchecks and Insulin PRN. Also okayed ice chips sparingly.
--- NOTE | 2019-12-23 00:55 | NUR ---
Restarted IV to left forearm with #20 insyte on first attempt. Pt requested new site as he didn't like the IV in his right AC. Dc'd INT to right AC, angiocath intact.
--- NOTE | 2019-12-23 01:03 | NUR ---
Initiated RN HEDIS Dilaudid at this time, infusing to left forearm site without problem, has NS at 125cc/hr infusing also. BS 96mg/dl.
--- NOTE | 2019-12-23 02:30 | NUR ---
Pt uses urinal, voids 300cc of yellow urine without problem.
--- NOTE | 2019-12-23 06:00 | NUR ---
PT TAKES OWN SYNTHROID THIS AM HE CAN'T TAKE GENERIC. NGT CLAMPED FOR 30 MINUTES.
--- NOTE | 2019-12-23 06:14 | NUR ---
NEW SYRINGE OF SWIMMING POOL MAINTENANCE DILAUDID HUNG. RATES PAIN 5/10. NG OUTPUT 950CC OF GREEN DRAINAGE WITH MORE IN CANNISTER AT THIS TIME.
[2019-12-23 08:31] LABS: BASO % 0.4 % (0.0-2.0); EOS # 0.3 (0.0-0.7); EOS % 2.6 % (0-4.0); GRAN # 7.5 (1.4-6.5); GRAN % 65.9 % (42.2-75.2); HEMATOCRIT 50.7 % (42.0-52.0); HEMOGLOBIN 16.4 g/dl (13.5-18.0); LYMPH # 2.1 (1.2-3.4); LYMPH % 18.2 % (20.0-51.0); MEAN CELL VOLUME 96 fl (80.0-100.0); MEAN CORPUSCULAR HEMOGLOBIN 31 pg (27.0-31.0); MEAN CORPUSCULAR HGB CONC 32 g/dl (33.0-37.0); MONO # 1.4 (0.1-0.6); MONO % 12.6 % (1.7-9.3); PLATELET COUNT 341 K/mm3 (130-400); RED BLOOD COUNT 5.31 M/mm3 (4.20-5.60); REDCELL DISTRIBUTION WIDTH-CV 13.2 % (11.5-14.5)
[2019-12-23 08:40] LABS: BILIRUBIN,TOTAL 0.9 mg/dL (0.0-1.0); CALCIUM 8.5 mg/dL (8.4-10.2); CREATININE, serum 0.82 (0.66-1.25); POTASSIUM 3.9 mmol/L (3.4-5.0); TOTAL PROTEIN 7.5 gm/dL (6.4-8.2)
--- NOTE | 2019-12-23 09:07 | NUR ---
PT SITTING UP IN BED. MANY COMPLAINTS. PT STATING THAT THIS HOSPITAL AND STAFF ARE THE REASON HE IS HAVING ISSUES R/T PAST SURGERY. (CHOLEYCYSTECTOMY). ON PHONE SEVERAL TIMES WITH [facility] SURGEON PER PT REPORT. FLUIDS CHANGED PER ORDERS.
--- NOTE | 2019-12-23 12:42 | NUR ---
LANA met with the patient to complete initial intake. The patient lives in [place] with his . The patient denies DME use and is independent with ADLs. The patient does not have a PCP and refused a list. He will find one on his own and the patient receives medications from [facility]. The patient does not have advanced directives in the EMR and was not interested in a DPOA-HC form. The patient plans to return home at discharge. There are no additional needs at this time.
--- NOTE | 2019-12-23 15:10 | NUR ---
NG TUBE CLAMPED PER ORDERS PT TOLERATED WELL, TAKING PO MEDS AND CLEAR LIQUIDS.
--- NOTE | 2019-12-23 19:03 | NUR ---
REPORT TO CHRIS MARTINEZ.
--- NOTE | 2019-12-23 21:00 | NUR ---
PT NOW ARGUING ABOUT LEVIMEIR INSULIN. PT EATING YOGURT, PUDDING AND APPLESAUCE. REFUSED INSULIN.
--- NOTE | 2019-12-23 21:00 | NUR ---
PT AGITATED AND VERY ARGUMENTATIVE. PT CONCERNED ABOUT DIET ORDERS, BP MEDICATION, LEVOTHYROXINE. HOME BP MED NOT ON RECONILED MEDS & NOT ON MAR. REQUESTED PT TO CALL AT HOME TO CLARIFY WHICH MED IT IS. CONTINUES TO ARGUE. THIS NURSE LEFT ROOM. ATTEMPTED NOTIFIED CAN RUNNER OF PT'S UNCOOPERATIVENESS. LINE BUSY. NOTIFIED CHARGE NURSE. PT CALLED THIS INURSE INTO ROOM. SENT PICTURE OF AMLODIPINE BOTTLE FROM HOME. NOTIFIED DR SALAZAR OF ALL OF PT'S COMPLAINTS. SEE NEW ORDERS.
--- NOTE | 2019-12-23 22:45 | NUR ---
PATIENT REFUSED TREATMENT
[2019-12-24 03:51] VITALS: BP 177/99; PULSE 84; TEMP 98.7
[2019-12-24 07:11] LABS: BASO # 0.1 (0.0-0.2); BASO % 0.5 % (0.0-2.0); EOS # 0.2 (0.0-0.7); EOS % 1.7 % (0-4.0); GRAN # 10.2 (1.4-6.5); HEMATOCRIT 51.3 % (42.0-52.0); HEMOGLOBIN 16.5 g/dl (13.5-18.0); LYMPH # 1.6 (1.2-3.4); MEAN CELL VOLUME 96 fl (80.0-100.0); MEAN CORPUSCULAR HEMOGLOBIN 31 pg (27.0-31.0); MEAN CORPUSCULAR HGB CONC 32 g/dl (33.0-37.0); MEAN PLATELET VOLUME 10.2 fl (7.4-10.4); MONO # 1.4 (0.1-0.6); MONO % 10.4 % (1.7-9.3); PLATELET COUNT 314 K/mm3 (130-400); RED BLOOD COUNT 5.37 M/mm3 (4.20-5.60); REDCELL DISTRIBUTION WIDTH-CV 12.9 % (11.5-14.5)
[2019-12-24 07:17] VITALS: BP 168/99; PULSE 98; TEMP 98.3
[2019-12-24 07:20] LABS: ALBUMIN 4.2 gm/dL (3.5-5.0); BILIRUBIN,TOTAL 0.9 mg/dL (0.0-1.0); CALCIUM 8.8 mg/dL (8.4-10.2); CREATININE, serum 0.74 (0.66-1.25); POTASSIUM 3.8 mmol/L (3.4-5.0); TOTAL PROTEIN 7.9 gm/dL (6.4-8.2)
--- NOTE | 2019-12-24 10:00 | NUR ---
Patient is hoping to discharge home by lunch time. Discontinued NG tube at this time. Patient tolerated well. Patient had a low fiber breakfast and tolerated well. No complaints of nausea. He has been passing flatus without problems, denies cramping. No other changes at this time. Call light within reach.
[2019-12-24 11:19] VITALS: BP 168/94; PULSE 92; TEMP 98.4
--- NOTE | 2019-12-24 12:00 | NUR ---
Patient is discharging home. Discharge isntructions discussed with patient. Explained to follow up if needed. No questions verbalized. INT discontinued. Copies of discharge instructions sent with patient. Patient walked out via wheel chair by Mellisa CRUZ.
== END 2019-12-24 12:10 | disposition home or self-care (01) | DRG 389 ==
LOC: COL.ER 21:44 → SURG 22:52
PROVIDERS: Nurse Practitioner Family; ADMIT Surgery
DX: K56.609 Unspecified intestinal obstruction, unspecified as to partial versus complete obstruction (principal); K86.1 Other chronic pancreatitis; F11.20 Opioid dependence, uncomplicated; I10 Essential (primary) hypertension; J44.9 Chronic obstructive pulmonary disease, unspecified; M19.90 Unspecified osteoarthritis, unspecified site; E10.40 Type 1 diabetes mellitus with diabetic neuropathy, unspecified; E04.2 Nontoxic multinodular goiter; G62.9 Polyneuropathy, unspecified; E21.3 Hyperparathyroidism, unspecified; Z90.49 Acquired absence of other specified parts of digestive tract; Z87.891 Personal history of nicotine dependence
CPT/HCPCS: OP; A9284; G0378; J1170; J1815; J2405; J2550; J3480; J7030; Q9967

== ENCOUNTER → 2020-01-27 | Outpatient (CLI) | payer OTHER, MEDICARE | LOC: COL.LAB 15:28 | DX: E03.9 Hypothyroidism, unspecified (principal) ==

== ENCOUNTER → 2020-02-08 | Outpatient (CLI) | payer OTHER, MEDICARE | LOC: MHCPAIN 12:51 | DX: M47.817 Spondylosis without myelopathy or radiculopathy, lumbosacral region (principal); M54.5 Low back pain; M53.3 Sacrococcygeal disorders, not elsewhere classified; G89.29 Other chronic pain | CPT/HCPCS: G0463 ==

== ENCOUNTER → 2020-02-10 | Outpatient (CLI) | payer OTHER, MEDICARE | LOC: COL.RAD 09:45 | DX: N50.812 Left testicular pain (principal); I86.1 Scrotal varices ==

== ENCOUNTER → 2020-02-23 | Outpatient (CLI) | payer OTHER, MEDICARE | LOC: MHCPAIN 12:01 | DX: M47.817 Spondylosis without myelopathy or radiculopathy, lumbosacral region (principal); M53.3 Sacrococcygeal disorders, not elsewhere classified; M54.5 Low back pain; G89.29 Other chronic pain | CPT/HCPCS: G0260; J1040; Q9967 ==

== ENCOUNTER → 2020-02-24 | Outpatient (CLI) | payer OTHER, MEDICARE | LOC: COL.RAD 11:39 | DX: M48.061 Spinal stenosis, lumbar region without neurogenic claudication (principal); M51.36 Other intervertebral disc degeneration, lumbar region; M51.37 Other intervertebral disc degeneration, lumbosacral region; M47.816 Spondylosis without myelopathy or radiculopathy, lumbar region; M47.817 Spondylosis without myelopathy or radiculopathy, lumbosacral region; M25.411 Effusion, right shoulder | CPT/HCPCS: A9585; Q9967 ==

== ENCOUNTER 2020-05-06 07:09 | Inpatient (IN) | payer OTHER, MEDICARE ==
[2020-05-06] VITALS (9 sets, daily range): BP systolic 139–165; BP diastolic 62–96; PULSE 74–89; TEMP 97.4–98.4
[~2020-05-06] VITALS: Ht 180.3 cm; Wt 89.0 kg
[2020-05-06 07:26] LABS: BASO # 0.1 (0.0-0.2); BASO % 0.4 % (0.0-2.0); EOS % 0.1 % (0-4.0); GRAN # 14.5 (1.4-6.5); GRAN % 86.6 % (42.2-75.2); HEMOGLOBIN 17.2 g/dl (13.5-18.0); LYMPH # 1.2 (1.2-3.4); LYMPH % 7.4 % (20.0-51.0); MEAN CELL VOLUME 94 fl (80.0-100.0); MEAN CORPUSCULAR HEMOGLOBIN 31 pg (27.0-31.0); MEAN CORPUSCULAR HGB CONC 33 g/dl (33.0-37.0); MEAN PLATELET VOLUME 9.8 fl (7.4-10.4); MONO # 0.9 (0.1-0.6); MONO % 5.1 % (1.7-9.3); PLATELET COUNT 359 K/mm3 (130-400); RED BLOOD COUNT 5.58 M/mm3 (4.20-5.60); REDCELL DISTRIBUTION WIDTH-CV 13.4 % (11.5-14.5)
[2020-05-06 07:27] LABS: HEMATOCRIT 52.2 % (42.0-52.0)
[2020-05-06 07:30] LABS: PROTHROMBIN TIME 11.2 SECONDS (9.7-12.8)
[2020-05-06 07:33] LABS: PARTIAL THROMBOPLASTIN TIME 40.3 SECONDS (26.0-37.0)
[2020-05-06 07:37] LABS: ALBUMIN 4.8 gm/dL (3.5-5.0); BILIRUBIN,TOTAL 0.7 mg/dL (0.0-1.0); C-REACTIVE PROTEIN 1.3 mg/dL (0.0-0.9); CALCIUM 9.7 mg/dL (8.4-10.2); CREATININE, serum 0.93 (0.66-1.25); MAGNESIUM 2.3 mg/dL (1.6-2.3); TOTAL PROTEIN 8.9 gm/dL (6.4-8.2)
[2020-05-06 08:27] LABS: COLLECTION METHOD CLEAN CATCH
[2020-05-06 08:48] LABS: MUCOUS Present /lpf; PH 8 (5-8); SQUAMOUS EPITHELIAL None Seen /hpf; URINE APPEARANCE Cloudy; URINE BACTERIA None Seen /hpf; URINE BILIRUBIN Negative (NEGATIVE); URINE BLOOD Negative (NEGATIVE); URINE COLOR Yellow; URINE GLUCOSE 3+ (NEGATIVE); URINE KETONE Trace (NEGATIVE); URINE LEUKOCYTE ESTERASE Negative (NEGATIVE); URINE NITRATE Negative (NEGATIVE); URINE PROTEIN(semi-quant) Negative (NEGATIVE); URINE RBC 0-2 /hpf; URINE UROBILINOGEN Negative (NEGATIVE)
[2020-05-06 16:41] LABS: BASO % 0.2 % (0.0-2.0); GRAN # 14.7 (1.4-6.5); GRAN % 88.5 % (42.2-75.2); HEMATOCRIT 51.1 % (42.0-52.0); HEMOGLOBIN 16.5 g/dl (13.5-18.0); LYMPH # 0.6 (1.2-3.4); LYMPH % 3.4 % (20.0-51.0); MEAN CELL VOLUME 95 fl (80.0-100.0); MEAN CORPUSCULAR HEMOGLOBIN 31 pg (27.0-31.0); MEAN CORPUSCULAR HGB CONC 32 g/dl (33.0-37.0); MEAN PLATELET VOLUME 9.8 fl (7.4-10.4); MONO # 1.3 (0.1-0.6); MONO % 7.5 % (1.7-9.3); PLATELET COUNT 344 K/mm3 (130-400); RED BLOOD COUNT 5.39 M/mm3 (4.20-5.60); REDCELL DISTRIBUTION WIDTH-CV 13.8 % (11.5-14.5)
[2020-05-06 17:05] LABS: ALBUMIN 4.2 gm/dL (3.5-5.0); BILIRUBIN,TOTAL 0.7 mg/dL (0.0-1.0); CALCIUM 8.7 mg/dL (8.4-10.2); CREATININE, serum 0.75 (0.66-1.25); TOTAL PROTEIN 7.8 gm/dL (6.4-8.2)
[2020-05-06] MEDS ORDERED: NORVASC 10MG10 MG PO (22:06)
[2020-05-07 03:37] VITALS: BP 149/87; PULSE 98; TEMP 98.3
[2020-05-07 06:38] LABS: HEMATOCRIT 51.3 % (42.0-52.0); HEMOGLOBIN 16.7 g/dl (13.5-18.0); MEAN CELL VOLUME 97 fl (80.0-100.0); MEAN CORPUSCULAR HEMOGLOBIN 32 pg (27.0-31.0); MEAN CORPUSCULAR HGB CONC 33 g/dl (33.0-37.0); MEAN PLATELET VOLUME 10.4 fl (7.4-10.4); PLATELET COUNT 304 K/mm3 (130-400); RED BLOOD COUNT 5.28 M/mm3 (4.20-5.60)
[2020-05-07 06:44] LABS: ALBUMIN 4.1 gm/dL (3.5-5.0); BILIRUBIN,TOTAL 1.2 mg/dL (0.0-1.0); C-REACTIVE PROTEIN 7.3 mg/dL (0.0-0.9); CALCIUM 8.5 mg/dL (8.4-10.2); CREATININE, serum 0.86 (0.66-1.25); POTASSIUM 3.8 mmol/L (3.4-5.0); TOTAL PROTEIN 7.9 gm/dL (6.4-8.2)
[2020-05-07 07:07] LABS: LACTATE DEHYDROGENASE 368 U/L (313-618); TRIGLYCERIDE 73 mg/dL
[2020-05-07 08:19] VITALS: BP 154/91; PULSE 95; TEMP 99.3
[2020-05-07 08:33] LABS: BAND 12 % (0-10); PLATELET ESTIMATE NORMAL (NORMAL)
[2020-05-07 08:34] LABS: LYMPHOCYTE 10 % (20.0-51.0)
[2020-05-07 08:38] LABS: NEUTROPHILS 74 % (42.0-75.2)
[2020-05-07 08:40] LABS: HOWELL-JOLLY BODIES 2+
[2020-05-07 12:16] VITALS: BP 158/90; PULSE 90; TEMP 98
[2020-05-07 16:01] VITALS: BP 162/86; PULSE 92; TEMP 98.7
[2020-05-07 19:59] VITALS: BP 142/92; PULSE 107; TEMP 98.6
[2020-05-07 23:02] VITALS: BP 167/87; PULSE 104; TEMP 98.4
[2020-05-08] VITALS (8 sets, daily range): BP systolic 121–159; BP diastolic 79–89; PULSE 104–119; TEMP 98.1–99.6
[2020-05-08 07:03] LABS: HEMATOCRIT 48.3 % (42.0-52.0); HEMOGLOBIN 15.5 g/dl (13.5-18.0); MEAN CELL VOLUME 98 fl (80.0-100.0); MEAN CORPUSCULAR HEMOGLOBIN 32 pg (27.0-31.0); MEAN CORPUSCULAR HGB CONC 32 g/dl (33.0-37.0); MEAN PLATELET VOLUME 11.4 fl (7.4-10.4); PLATELET COUNT 259 K/mm3 (130-400); RED BLOOD COUNT 4.92 M/mm3 (4.20-5.60); REDCELL DISTRIBUTION WIDTH-CV 13.7 % (11.5-14.5)
[2020-05-08 07:21] LABS: ALBUMIN 3.5 gm/dL (3.5-5.0); BILIRUBIN,TOTAL 1.1 mg/dL (0.0-1.0); CALCIUM 8.3 mg/dL (8.4-10.2); CREATININE, serum 0.86 (0.66-1.25); POTASSIUM 3.4 mmol/L (3.4-5.0); TOTAL PROTEIN 6.8 gm/dL (6.4-8.2)
[2020-05-08 08:04] LABS: C-REACTIVE PROTEIN 30.8 mg/dL (0.0-0.9)
[2020-05-08 08:08] LABS: BASOPHIL 1 % (0-2); LYMPHOCYTE 18 % (20.0-51.0); NEUTROPHILS 72 % (42.0-75.2); PLATELET ESTIMATE NORMAL (NORMAL)
[2020-05-08 08:11] LABS: PATHOLOGY DIFF REVIEW OK
[2020-05-08 08:11] LABS: HYPOCHROMIA 1+
[2020-05-08 08:14] LABS: HOWELL-JOLLY BODIES 1+
[2020-05-09 04:04] VITALS: BP 139/89; PULSE 99; TEMP 98.2
[2020-05-09 07:42] VITALS: BP 160/99; PULSE 109; TEMP 98.7
[2020-05-09 09:46] LABS: BASO % 0.3 % (0.0-2.0); EOS # 0.2 (0.0-0.7); EOS % 1.9 % (0-4.0); GRAN # 8.1 (1.4-6.5); GRAN % 70.5 % (42.2-75.2); HEMATOCRIT 46.3 % (42.0-52.0); HEMOGLOBIN 15.3 g/dl (13.5-18.0); LYMPH # 2.1 (1.2-3.4); LYMPH % 18.4 % (20.0-51.0); MEAN CORPUSCULAR HEMOGLOBIN 31 pg (27.0-31.0); MEAN CORPUSCULAR HGB CONC 33 g/dl (33.0-37.0); MEAN PLATELET VOLUME 10.1 fl (7.4-10.4); MONO % 8.6 % (1.7-9.3); PLATELET COUNT 314 K/mm3 (130-400); RED BLOOD COUNT 4.98 M/mm3 (4.20-5.60)
[2020-05-09 09:48] LABS: MEAN CELL VOLUME 93 fl (80.0-100.0)
[2020-05-09 10:01] LABS: ALBUMIN 3.7 gm/dL (3.5-5.0); BILIRUBIN,TOTAL 1.1 mg/dL (0.0-1.0); CALCIUM 8.6 mg/dL (8.4-10.2); CREATININE, serum 0.85 (0.66-1.25); MAGNESIUM 1.8 mg/dL (1.6-2.3); PHOSPHOROUS 1.4 mg/dL (2.5-4.5); POTASSIUM 3.2 mmol/L (3.4-5.0); TOTAL PROTEIN 7.1 gm/dL (6.4-8.2)
== END 2020-05-09 11:28 | disposition home or self-care (01) | DRG 388 ==
LOC: COL.ER 07:09 → SURG 09:02
PROVIDERS: Emergency Medicine; ADMIT Surgery
DX: K56.600 Partial intestinal obstruction, unspecified as to cause (principal); K85.90 Acute pancreatitis without necrosis or infection, unspecified; K86.1 Other chronic pancreatitis
CPT/HCPCS: C9113; J1170; J1200; J1650; J1815; J2405; J2550; J3230; J7030; J7050; J7120; Q9967

== ENCOUNTER → 2020-05-14 | Outpatient (CLI) | payer OTHER, MEDICARE ==
[~2020-05-14] MED LIST changes: +NORVASC 10MG10 MG PO
== END ==
LOC: MHCPAIN 14:32
DX: M47.817 Spondylosis without myelopathy or radiculopathy, lumbosacral region (principal); M54.5 Low back pain; M53.3 Sacrococcygeal disorders, not elsewhere classified; G89.29 Other chronic pain
CPT/HCPCS: G0463

== ENCOUNTER → 2020-08-07 | Outpatient (CLI) | payer OTHER, MEDICARE | LOC: MHCPAIN 14:04 | DX: M47.817 Spondylosis without myelopathy or radiculopathy, lumbosacral region (principal); M54.5 Low back pain; M79.10 Myalgia, unspecified site; G89.29 Other chronic pain | CPT/HCPCS: G0463 ==

== ENCOUNTER → 2020-08-21 | Outpatient (CLI) | payer OTHER, MEDICARE | LOC: COL.RAD 09:52 | DX: M25.551 Pain in right hip (principal); M25.552 Pain in left hip ==

== ENCOUNTER → 2020-11-06 | Outpatient (CLI) | payer OTHER, MEDICARE ==
[~2020-11-06] MED LIST changes: +ASPIRIN E.C. 8181 MG PO; +LIPITOR 40MG TA40 MG PO; +TOPROL XL 25MG25 MG PO
== END ==
LOC: MHCPAIN 12:52
DX: M47.817 Spondylosis without myelopathy or radiculopathy, lumbosacral region (principal); M54.5 Low back pain; M79.18 Myalgia, other site
CPT/HCPCS: G0463

== ENCOUNTER 2020-12-26 12:52 | Observation (INO) | payer OTHER, MEDICARE ==
[~2020-12-26] VITALS: Ht 180.3 cm; Wt 86.4 kg
[~2020-12-26 12:52] MED LIST changes: -ASPIRIN E.C. 8181 MG PO; -LIPITOR 40MG TA40 MG PO; -TOPROL XL 25MG25 MG PO
[2020-12-26 13:49] LABS: BASO # 0.1 (0.0-0.2); BASO % 0.7 % (0.0-2.0); EOS # 0.5 (0.0-0.7); EOS % 5.2 % (0-4.0); GRAN # 6.9 (1.4-6.5); GRAN % 70.8 % (42.2-75.2); HEMATOCRIT 44.5 % (42.0-52.0); HEMOGLOBIN 14.4 g/dl (13.5-18.0); LYMPH # 1.3 (1.2-3.4); LYMPH % 13.4 % (20.0-51.0); MEAN CELL VOLUME 94 fl (80.0-100.0); MEAN CORPUSCULAR HEMOGLOBIN 30 pg (27.0-31.0); MEAN CORPUSCULAR HGB CONC 32 g/dl (33.0-37.0); MEAN PLATELET VOLUME 9.7 fl (7.4-10.4); MONO # 0.9 (0.1-0.6); MONO % 9.3 % (1.7-9.3); PLATELET COUNT 365 K/mm3 (130-400); RED BLOOD COUNT 4.76 M/mm3 (4.20-5.60); REDCELL DISTRIBUTION WIDTH-CV 13.3 % (11.5-14.5)
[2020-12-26 14:44] LABS: CALCIUM 8.7 mg/dL (8.4-10.2); CREATININE, serum 0.71 (0.66-1.25); POTASSIUM 3.7 mmol/L (3.4-5.0)
[2020-12-26 14:58] LABS: TROPONIN-I 0.245 ng/mL (0.000-0.035)
[2020-12-26] MEDS ORDERED: NEURONTIN300 MG/CAP PO (19:20)
[2020-12-26] MEDS ORDERED: CREON 120000 U-1 ECC PO (19:20)
[2020-12-26] MEDS ORDERED: ZOFRAN 4MG T4 MG/TAB PO (19:23)
[2020-12-26 20:20] VITALS: BP 162/87; PULSE 85; TEMP 98.9
--- NOTE | 2020-12-26 20:47 | NUR ---
Pt. sitting up in bed. Pt. is A&Ox3, assessment complete. INT to rt. ac patent. Pt. reports pain to rt. hip at a 8 after having 1 percocet. Pt. denies further needs.
--- NOTE | 2020-12-26 21:51 | NUR ---
Pt. sitting up at bedside. Pt. report dressing to back where he had lumbar surgery s/p 1 week was draining. Dressing removed, incision edges well approximated, sutures intact, no reddness, or warmth noted. Cleaned with 2 providine-iodine swabs. Applied telfa dressing and tegaderm to site. Pt. also reports that pain to lt.hip remains at a 9. DOMINICK Mendez notified, new orders received. Will give meds per orders.
[2020-12-27 00:39] VITALS: BP 144/86; PULSE 75; TEMP 98
[2020-12-27 03:46] VITALS: BP 135/66; PULSE 68; TEMP 98.1
[2020-12-27 07:13] LABS: BASO # 0.1 (0.0-0.2); BASO % 0.9 % (0.0-2.0); EOS # 0.7 (0.0-0.7); EOS % 7.5 % (0-4.0); GRAN # 5.2 (1.4-6.5); GRAN % 56.6 % (42.2-75.2); HEMATOCRIT 45.2 % (42.0-52.0); HEMOGLOBIN 14.7 g/dl (13.5-18.0); LYMPH # 1.9 (1.2-3.4); LYMPH % 21.1 % (20.0-51.0); MEAN CELL VOLUME 94 fl (80.0-100.0); MEAN CORPUSCULAR HEMOGLOBIN 31 pg (27.0-31.0); MEAN CORPUSCULAR HGB CONC 33 g/dl (33.0-37.0); MEAN PLATELET VOLUME 9.8 fl (7.4-10.4); MONO # 1.2 (0.1-0.6); MONO % 13.5 % (1.7-9.3); PLATELET COUNT 378 K/mm3 (130-400); RED BLOOD COUNT 4.82 M/mm3 (4.20-5.60); REDCELL DISTRIBUTION WIDTH-CV 13.2 % (11.5-14.5)
[2020-12-27 07:34] LABS: CALCIUM 8.4 mg/dL (8.4-10.2); CHOLESTEROL RISK RATIO 6.5; CREATININE, serum 0.76 (0.66-1.25); POTASSIUM 3.5 mmol/L (3.4-5.0)
[2020-12-27 07:41] LABS: TROPONIN-I 0.119 ng/mL (0.000-0.035)
[2020-12-27 08:21] VITALS: BP 153/85; PULSE 70; TEMP 98.1
[2020-12-27] MEDS ORDERED: LIPITOR 40MG TA40 MG PO ×2 (08:55)
[2020-12-27] MEDS ORDERED: ASPIRIN E.C. 8181 MG PO ×2 (08:56)
[2020-12-27] MEDS ORDERED: TOPROL XL 25MG25 MG PO (09:11)
--- NOTE | 2020-12-27 10:03 | NUR ---
Initial visit; Patient very pleasant and thanked Data Processing Systems Consultant for looking in on him.
--- NOTE | 2020-12-27 11:35 | NUR ---
Patient is discharging home. Discharge instructions discussed with patient. No questions verbalized. INT discontinued by student. Copies of discharge instructions sent with patient. All belongings packed up and sent with patient. He is aware of his follow up with Cardiology. Explained we left a message with Dr Meyer's office to call him with his follow up appointment. He verbalized understanding. Copies of discharge instructions sent with patient. Patient walked out via wheel chair by Mariela CRUZ.
--- NOTE | 2020-12-27 12:56 | NUR ---
Sonoscope Operator attended clinical rounds with the team and patient will likely discharge today. SW met with patient to discuss discharge planning. Patient lives in [place] with his , Yazmin Aragon" (ph#[phone]) and sees Dr. Eubanks for primary care. [facility]. Patient does not use any DME and is independent with ADLS. Patient has DPOA-HC in EMR which designates his Caprice Dennison. Patient plans to return home upon discharge.
== END 2020-12-27 11:35 | disposition home or self-care (01) ==
LOC: COL.ER 12:52 → SURG 16:35
PROVIDERS: Emergency Medicine; Physician Assistant; ADMIT Internal Medicine
DX: I21.4 Non-ST elevation (NSTEMI) myocardial infarction (principal); G89.29 Other chronic pain; J44.9 Chronic obstructive pulmonary disease, unspecified; E03.9 Hypothyroidism, unspecified; E11.9 Type 2 diabetes mellitus without complications; K59.03 Drug induced constipation; I10 Essential (primary) hypertension; F32.9 Major depressive disorder, single episode, unspecified; Z79.890 Hormone replacement therapy; Z79.899 Other long term (current) drug therapy; Z79.891 Long term (current) use of opiate analgesic; Z98.890 Other specified postprocedural states; Z79.52 Long term (current) use of systemic steroids; Z90.89 Acquired absence of other organs; Z79.4 Long term (current) use of insulin; Z90.49 Acquired absence of other specified parts of digestive tract; Z87.891 Personal history of nicotine dependence; Z88.8 Allergy status to other drugs, medicaments and biological substances
CPT/HCPCS: G0378; J1170; J1815; J2270; J2405; Q9967

== ENCOUNTER → 2021-01-08 | Outpatient (CLI) | payer OTHER, MEDICARE ==
[~2021-01-08] MED LIST changes: +ASPIRIN E.C. 8181 MG PO; +LIPITOR 40MG TA40 MG PO; +TOPROL XL 25MG25 MG PO
== END ==
LOC: MHCPAIN 12:52
DX: M47.816 Spondylosis without myelopathy or radiculopathy, lumbar region (principal); M53.3 Sacrococcygeal disorders, not elsewhere classified; M79.18 Myalgia, other site; G89.29 Other chronic pain
CPT/HCPCS: G0463

== ENCOUNTER → 2021-03-20 | Outpatient (CLI) | payer OTHER, MEDICARE | LOC: COL.RAD 14:20 | DX: M47.896 Other spondylosis, lumbar region (principal); Z98.890 Other specified postprocedural states ==

== ENCOUNTER → 2021-03-20 | Outpatient (CLI) | payer OTHER, MEDICARE | LOC: MHCPAIN 13:19 | DX: M47.817 Spondylosis without myelopathy or radiculopathy, lumbosacral region (principal); M54.5 Low back pain; M53.3 Sacrococcygeal disorders, not elsewhere classified | CPT/HCPCS: G0463 ==

== ENCOUNTER → 2021-04-05 | Outpatient (CLI) | payer OTHER, MEDICARE | LOC: COL.RAD 13:53 | DX: M47.896 Other spondylosis, lumbar region (principal) ==

== ENCOUNTER → 2021-06-12 | Outpatient (CLI) | payer OTHER, MEDICARE | LOC: MHCPAIN 12:20 | DX: M47.817 Spondylosis without myelopathy or radiculopathy, lumbosacral region (principal); M54.5 Low back pain; M79.18 Myalgia, other site | CPT/HCPCS: G0463 ==

== ENCOUNTER → 2021-06-27 | Outpatient (CLI) | payer OTHER, MEDICARE | LOC: MHCPAIN 11:23 | DX: M47.817 Spondylosis without myelopathy or radiculopathy, lumbosacral region (principal); M54.50 Low back pain, unspecified; M53.3 Sacrococcygeal disorders, not elsewhere classified | CPT/HCPCS: J2250; J3010 ==

== ENCOUNTER → 2021-07-02 | Outpatient (CLI) | payer OTHER, MEDICARE ==
[2021-07-02 11:44] LABS: BASO # 0.1 K/mm3 (0.0-0.2); BASO % 1.7 % (0.0-2.0); EOS # 0.8 K/mm3 (0.0-0.7); GRAN # 3.7 K/mm3 (1.4-6.5); GRAN % 49.3 % (42.2-75.2); HEMATOCRIT 46.3 % (42.0-52.0); HEMOGLOBIN 14.9 g/dl (13.5-18.0); LYMPH # 1.9 K/mm3 (1.2-3.4); LYMPH % 25.3 % (20.0-51.0); MEAN CELL VOLUME 95 fl (80.0-100.0); MEAN CORPUSCULAR HEMOGLOBIN 31 pg (27.0-31.0); MEAN CORPUSCULAR HGB CONC 32 g/dl (33.0-37.0); MEAN PLATELET VOLUME 10.6 fl (7.4-10.4); MONO % 12.6 % (1.7-9.3); PLATELET COUNT 326 K/mm3 (130-400); RED BLOOD COUNT 4.87 M/mm3 (4.20-5.60); REDCELL DISTRIBUTION WIDTH-CV 14.2 % (11.5-14.5)
[2021-07-02 12:43] LABS: BILIRUBIN,TOTAL 0.5 mg/dL (0.2-1.2); CALCIUM 8.8 mg/dL (8.4-10.2); CREATININE, serum 0.87 mg/dL (0.72-1.25); POTASSIUM 4.1 mmol/L (3.5-4.5); TOTAL PROTEIN 6.6 gm/dL (6.2-8.1); VALPROIC ACID (DEPAKENE) 54.6 ug/mL (43.5-90.5)
== END ==
LOC: COL.LAB 11:17
PROVIDERS: Psychiatry & Neurology Psychiatry
DX: Z79.899 Other long term (current) drug therapy (principal)

== ENCOUNTER → 2021-07-04 | Outpatient (CLI) | payer OTHER, MEDICARE | LOC: MHCPAIN 08:50 | DX: M47.817 Spondylosis without myelopathy or radiculopathy, lumbosacral region (principal); M54.50 Low back pain, unspecified; M53.3 Sacrococcygeal disorders, not elsewhere classified | CPT/HCPCS: J1100; J2250; J3010 ==

== ENCOUNTER → 2021-08-14 | Outpatient (CLI) | payer OTHER, MEDICARE | LOC: MHCPAIN 12:31 | DX: M47.817 Spondylosis without myelopathy or radiculopathy, lumbosacral region (principal); M79.2 Neuralgia and neuritis, unspecified; M53.3 Sacrococcygeal disorders, not elsewhere classified; M54.50 Low back pain, unspecified | CPT/HCPCS: G0463 ==

== ENCOUNTER → 2021-12-18 | Outpatient (CLI) | payer OTHER, MEDICARE | LOC: MHCPAIN 12:13 | DX: M47.896 Other spondylosis, lumbar region (principal); M53.3 Sacrococcygeal disorders, not elsewhere classified; M79.18 Myalgia, other site | CPT/HCPCS: G0463 ==

== ENCOUNTER → 2022-04-15 | Outpatient (CLI) | payer OTHER, MEDICARE | LOC: MHCPAIN 12:27 | DX: M79.18 Myalgia, other site (principal); M54.50 Low back pain, unspecified; M53.3 Sacrococcygeal disorders, not elsewhere classified; M47.896 Other spondylosis, lumbar region | CPT/HCPCS: G0463 ==

== ENCOUNTER → 2022-05-01 | Outpatient (CLI) | payer OTHER, MEDICARE | LOC: MHCPAIN 10:00 | DX: M47.817 Spondylosis without myelopathy or radiculopathy, lumbosacral region (principal); M54.50 Low back pain, unspecified; M53.3 Sacrococcygeal disorders, not elsewhere classified | CPT/HCPCS: J2250; J3010 ==

== ENCOUNTER → 2022-06-09 | Outpatient (CLI) | payer OTHER, MEDICARE | LOC: MHCPAIN 09:20 | DX: M47.817 Spondylosis without myelopathy or radiculopathy, lumbosacral region (principal); M54.59 Other low back pain; M53.3 Sacrococcygeal disorders, not elsewhere classified | CPT/HCPCS: G0463; J2250; J3010 ==

== ENCOUNTER → 2022-11-25 | Outpatient (CLI) | payer OTHER, MEDICARE | LOC: MHCPAIN 12:32 | DX: M54.50 Low back pain, unspecified (principal); M79.18 Myalgia, other site; M47.896 Other spondylosis, lumbar region | CPT/HCPCS: G0463 ==

== ENCOUNTER → 2023-05-27 | Outpatient (CLI) | payer OTHER, MEDICARE | LOC: MHCPAIN 12:29 | DX: M54.81 Occipital neuralgia (principal); M54.50 Low back pain, unspecified; M96.1 Postlaminectomy syndrome, not elsewhere classified; G89.29 Other chronic pain | CPT/HCPCS: G0463 ==

== ENCOUNTER → 2023-09-24 | Outpatient (CLI) | payer OTHER, MEDICARE ==
[~2023-09-24] MED LIST changes: +Lidocaine PF 1% (10 MG/ML) 5 ML VIAL ONE; +Lidocaine PF 2% (20 MG/ML) 5 ML VIAL ONE; +Midazolam 2 MG/2 ML VIAL ONE; +Ondansetron 4 MG/2 ML VIAL ONE; +fentaNYL 50 MCG/ML 2 ML VIAL ONE
== END ==
LOC: MHCPAIN 12:06
DX: M47.817 Spondylosis without myelopathy or radiculopathy, lumbosacral region (principal); M54.50 Low back pain, unspecified
CPT/HCPCS: J0665; J2250; J2405; J3010

== ENCOUNTER → 2023-11-24 | Outpatient (CLI) | payer OTHER, MEDICARE ==
[~2023-11-24] MED LIST changes: -Lidocaine PF 1% (10 MG/ML) 5 ML VIAL ONE; -Lidocaine PF 2% (20 MG/ML) 5 ML VIAL ONE; -Midazolam 2 MG/2 ML VIAL ONE; -Ondansetron 4 MG/2 ML VIAL ONE; -fentaNYL 50 MCG/ML 2 ML VIAL ONE
== END ==
LOC: MHCPAIN 11:09
DX: M79.18 Myalgia, other site (principal); M96.1 Postlaminectomy syndrome, not elsewhere classified; M47.896 Other spondylosis, lumbar region
CPT/HCPCS: G0463

== ENCOUNTER → 2023-12-03 | Outpatient (CLI) | payer OTHER, MEDICARE ==
[~2023-12-03] MED LIST changes: +Iohexol 300 - 10 ML VIAL ONE; +Lidocaine PF 2% (20 MG/ML) 2 ML VIAL ONE
== END ==
LOC: MHCPAIN 13:59
DX: M47.816 Spondylosis without myelopathy or radiculopathy, lumbar region (principal); M96.1 Postlaminectomy syndrome, not elsewhere classified; M54.16 Radiculopathy, lumbar region
CPT/HCPCS: J1100; Q9967

== ENCOUNTER → 2023-12-30 | Outpatient (CLI) | payer OTHER, MEDICARE ==
[~2023-12-30] MED LIST changes: -Iohexol 300 - 10 ML VIAL ONE; -Lidocaine PF 2% (20 MG/ML) 2 ML VIAL ONE
== END ==
LOC: MHCPAIN 12:30
DX: M47.896 Other spondylosis, lumbar region (principal); M96.1 Postlaminectomy syndrome, not elsewhere classified
CPT/HCPCS: G0463

== ENCOUNTER → 2024-01-04 | Outpatient (CLI) | payer OTHER, MEDICARE ==
[~2024-01-04] MED LIST changes: +Iohexol 300 - 10 ML VIAL ONE
== END ==
LOC: MHCPAIN 11:09
DX: M46.1 Sacroiliitis, not elsewhere classified (principal); M54.50 Low back pain, unspecified; M53.3 Sacrococcygeal disorders, not elsewhere classified
CPT/HCPCS: G0260; J0665; J1010; Q9967

== ENCOUNTER → 2024-05-04 | Outpatient (CLI) | payer OTHER, MEDICARE ==
[~2024-05-04] MED LIST changes: -Iohexol 300 - 10 ML VIAL ONE
== END ==
LOC: MHCPAIN 12:27
DX: M48.07 Spinal stenosis, lumbosacral region (principal); M47.817 Spondylosis without myelopathy or radiculopathy, lumbosacral region; M79.18 Myalgia, other site; M79.2 Neuralgia and neuritis, unspecified
CPT/HCPCS: G0463

== ENCOUNTER → 2024-06-09 | Outpatient (CLI) | payer OTHER, MEDICARE ==
[~2024-06-09] MED LIST changes: +Lidocaine PF 2% (20 MG/ML) 5 ML VIAL ONE; +Midazolam 2 MG/2 ML VIAL ONE; +fentaNYL 50 MCG/ML 2 ML VIAL ONE
== END ==
LOC: MHCPAIN 08:01
DX: M47.817 Spondylosis without myelopathy or radiculopathy, lumbosacral region (principal); M54.50 Low back pain, unspecified
CPT/HCPCS: J0665; J2250; J3010

== ENCOUNTER → 2024-08-10 | Outpatient (CLI) | payer OTHER, MEDICARE ==
[~2024-08-10] MED LIST changes: -Lidocaine PF 2% (20 MG/ML) 5 ML VIAL ONE; -Midazolam 2 MG/2 ML VIAL ONE; -fentaNYL 50 MCG/ML 2 ML VIAL ONE
== END ==
LOC: MHCPAIN 13:01
DX: G89.29 Other chronic pain (principal); M51.372 Other intervertebral disc degeneration, lumbosacral region with discogenic back pain and lower extremity pain; M96.1 Postlaminectomy syndrome, not elsewhere classified; M47.817 Spondylosis without myelopathy or radiculopathy, lumbosacral region; M48.07 Spinal stenosis, lumbosacral region; Z79.891 Long term (current) use of opiate analgesic; K86.89 Other specified diseases of pancreas
CPT/HCPCS: G0463

== ENCOUNTER → 2024-08-15 | Outpatient (CLI) | payer OTHER, MEDICARE ==
[~2024-08-15] MED LIST changes: +Iohexol 300 - 10 ML VIAL ONE; +Lidocaine PF 2% (20 MG/ML) 2 ML VIAL ONE
== END ==
LOC: MHCPAIN 14:13
DX: M54.17 Radiculopathy, lumbosacral region (principal); M54.16 Radiculopathy, lumbar region; M96.1 Postlaminectomy syndrome, not elsewhere classified
CPT/HCPCS: J1100; Q9967